=== PATIENT | female | born 1980 | race Caucasian/White ===

== ENCOUNTER 2017-08-15 08:37 | Inpatient (IN) | payer OTHER ==
[2017-08-11 17:47] VITALS: BMI 36.3
[2017-10-03] MEDS ORDERED: ONDANSETRON 4 MG/2 ML VIAL IVPUSH PRN ×2 (15:31→21:20)
[2017-10-03] MEDS ORDERED: LACTATED RINGERS SOLUTION 1,000 ML IV SCH ×2 (15:45→21:30)
[2017-10-03] MEDS ORDERED: HYDROmorphone *PCA* 6MG/30ML DISP.SYRIN PCA SCH ×2 (15:45→21:30)
[2017-10-03] MEDS ORDERED: ceFAZolin SODIUM 1 GM VIAL IVPB ONE ×3 (17:10→19:33)
[2017-10-03] MEDS ORDERED: VANCOMYCIN 1,000 MG VIAL (RESTRICTED TO ID ONLY) IVPB ONE (17:12)
[2017-10-03] MEDS ORDERED: GELATIN, ABSORBABLE 100 EACH SPONGE TP ONE ×2 (17:34→18:07)
[2017-10-03] MEDS ORDERED: THROMBIN (BOVINE) 5,000 UNIT VIAL TP ONE ×2 (17:34→18:07)
[2017-10-03] MEDS ORDERED: BACITRACIN 15 GM TUBE TOPICAL OINTMENT ONE (19:06)
[2017-10-03] MEDS ORDERED: PROPOFOL 20 ML ONE ×5 (19:25)
[2017-10-03] MEDS ORDERED: ceFAZolin SODIUM 1 GM VIAL ONE (19:32)
[2017-10-03] MEDS ORDERED: fentaNYL CITRATE 250 MCG/5 ML VIAL ONE ×2 (20:17→20:37)
[2017-10-03] MEDS ORDERED: GLYCOPYRROLATE 0.2 MG/1 ML VIAL ONE ×2 (21:09)
[2017-10-03] MEDS ORDERED: NEOSTIGMINE METHYLSULFATE 0.5 MG/ML - 10 ML MDV ONE (21:09)
[2017-10-03] MEDS ORDERED: PROMETHAZINE HCL 25 MG/1 ML VIAL IVPUSH PRN (21:20)
[2017-10-03] MEDS ORDERED: HYDROmorphone *PCA* 6MG/30ML DISP.SYRIN PCA ONE (21:33)
[2017-10-03] MEDS: ONDANSETRON 4 MG/2 ML VIAL IVPUSH PRN (21:45)
[2017-10-03] MEDS ORDERED: diazePAM 2 MG TABLET PO PRN (21:51)
[2017-10-03] MEDS ORDERED: ONDANSETRON 4 MG/2 ML VIAL ONE (21:54)
[2017-10-03] MEDS ORDERED: ACETAMINOPHEN INJECTION 100 ML IVPB ONE (21:56)
--- NOTE | 2017-10-03 21:57 | CONSULT ---
Consult Consult Specialty:: internal medicine Referred by:: dr blanchard Reason for Consultation:: post op medical management - History of Present Illness Chief Complaint: pt just had back surgery - Past Medical History ...LMP: 10/06/16 ...LMP Comment: GETS YEARLY- CONTROL PILL Musculoskeletal: Yes: Chronic low back pain - Alcohol/Substance Use Hx Alcohol Use: No - Smoking History Smoking history: Never smoked Home Medications - Allergies Allergies/Adverse Reactions: Allergies Allergy/AdvReac Type Severity Reaction Status Date / Time No Known Drug Allergies Allergy Verified 10/03/17 12:04 shellfish derived Allergy "FACE Verified 10/03/17 12:04 SWOLLEN,THROAT CLOSES" - Home Medications Home Medications: Ambulatory Orders Amitriptyline HCl 150 mg PO HS 08/11/17 Desogestrel-Ethinyl Estradiol [Apri] 1 each PO DAILY 08/11/17 Fluticasone Prop 0.05% Nasal [Flonase -] 1 - 2 spray NS DAILY 08/11/17 Hydrocodone/Acetaminophen [Hydrocodone-Acetamin 5-300 mg] 1 each PO PRN PRN 11/23 Ranitidine HCl 150 mg PO BID 08/11/17 Zolpidem Tartrate [Ambien] 10 mg PO HS 08/11/17 Physical Exam Vital Signs: Vital Signs Temperature 98.1 F 10/03/17 12:26 Pulse Rate 100 H 10/03/17 12:26 Respiratory Rate 18 10/03/17 12:26 Blood Pressure 130/81 10/03/17 12:26 O2 Sat by Pulse Oximetry (%) 100 10/03/17 12:27 Constitutional: Yes: Calm HENT: Yes: Atraumatic Neck: Yes: Supple Cardiovascular: Yes: Regular Rate and Rhythm, Tachycardia Respiratory: Yes: CTA Bilaterally Gastrointestinal: Yes: Normal Bowel Sounds Extremities: Yes: WNL Edema: No Neurological: Yes: Alert, Oriented Problem List - Problems (1) Chronic back pain Code(s): M54.9 - DORSALGIA, UNSPECIFIED; G89.29 - OTHER CHRONIC PAIN Assessment/Plan 37 y o female s/p back surgery asked by surgeon for medical consult 1.prn pain meds 2.clear liquid diet in am 3.fu labs 4.neuro consult
[2017-10-03] MEDS ORDERED: ACETAMINOPHEN 325 MG TABLET (FP) PO SCH (22:00)
[2017-10-03] MEDS: ACETAMINOPHEN 1000 MG/100 ML VIAL (NON FORMULARY) IVPB ONE (22:00)
[2017-10-03] MEDS ORDERED: MUPIROCIN 2% TOPICAL OINTMENT FOR DECOLONIZATION NS SCH (22:00)
[2017-10-03] MEDS ORDERED: PATIENT'S OWN MEDICATION (NON-FORMULARY) (Zolpidem Tartrate [Ambien] 10 MG) PO SCH (22:00)
[2017-10-03] MEDS ORDERED: CHLORHEXIDINE GLUCONATE 4% CLEANSER FOR DECOLONIZATION TP SCH (22:00)
[2017-10-03] MEDS ORDERED: AMITRIPTYLINE HCL 150 MG PO SCH (22:00)
--- NOTE | 2017-10-03 22:06 | PN ---
Teaching Attending Note Name of Resident: Ellis Barnett ATTENDING PHYSICIAN STATEMENT I saw and evaluated the patient. I reviewed the resident's note and discussed the case with the resident. I agree with the resident's findings and plan as documented. SUBJECTIVE: 37 F with Pmhx of anxiety and depression who is POD #0 of L4-S1 fusion and posterior decompression. States she has back pain, currently post surgery, but it is getting controlled. Denies any fevers or chills. No chest pain or pressure. No N, V,D. No shortness of breath OBJECTIVE: Physical: VS: Vital Signs Period Temp Pulse Resp BP Sys/García Pulse Ox Last 24 Hr 98.1 F 100 18 130/81 100 GEN: NAD, Resting in bed, AA0X3 HEENT: NCAT, PERRL, throat without erythema or exudates CARD: RRR S1, S2 RESP: CTAB ABD: BSx4, NTD to palpation EXT: -C/C/E EKG-NSR Home Medications Medication Instructions Recorded Amitriptyline HCl 150 mg PO HS 08/11/17 Desogestrel-Ethinyl Estradiol 1 each PO DAILY 08/11/17 [Apri] Fluticasone Prop 0.05% Nasal 1 - 2 spray NS DAILY 08/11/17 [Flonase -] Hydrocodone/Acetaminophen 1 each PO PRN PRN 08/11/17 [Hydrocodone-Acetamin 5-300 mg] Ranitidine HCl 150 mg PO BID 08/11/17 Zolpidem Tartrate [Ambien] 10 mg PO HS 08/11/17 ASSESSMENT AND PLAN: 37 F with Pmhx fo Anxiety and Depression who is POD #0 of L4-S1 fusion and posterior decompression 1.) L4-S1 Fusion/Posterior Decompression - POD #0 - Check CBC, CMP - IC - Pain control - NPO except meds - IVF 2.) Depression - Amytryptiline 3.) GERD - C/W Rantidine 4.) Dvt ppx - SCDs - As per sx Accepted to ICU CC Time: 30 Minutes
[2017-10-03] MEDS ORDERED: ZOLPIDEM TARTRATE 5 MG TABLET PO PRN (22:08)
[2017-10-03 22:13] LABS: HEMOGLOBIN 11.5 GM/dL (10.7-15.3); MCH 27.1 pg (25.7-33.7)
--- NOTE | 2017-10-03 22:13 | OP ---
Operative Note - Note: Operative Date: 10/03/17 Pre-Operative Diagnosis: radiculopathy, spianl instabiltiy Operation: posterior lamienctomy/decompression of L4-S1 with interbody fusion Surgeon: Damaso Cool Highway Commissioner: Abeba Rosas Anesthesiologist/LIP AND GATE BUILDER: Maico Bonds Anesthesia: General Specimens Removed: disc L4-L5 and L5-S1 Estimated Blood Loss (mls): 750 Drains, Volume Out (mls): 400 (sagastume) Blood Volume Replaced (mls): 400 (cell saver) Fluid Volume Replaced (mls): 4,300 Operative Report Dictated: Yes
[2017-10-03 22:16] LABS: HEMATOCRIT 35.4 % (32.4-45.2); MCHC 32.4 g/dl (32.0-36.0); MEAN CELL VOLUME 83.6 fl (80-96); MEAN PLT VOLUME 8.5 fl (7.5-11.1); PLATELET COUNT 210 K/MM3 (134-434); RBC 4.23 M/mm3 (3.60-5.2); RDW 13.4 % (11.6-15.6); WHITE BLOOD COUNT 14.6 K/mm3 (4.0-10.0)
[2017-10-03 22:25] LABS: ANION GAP 9 (8-16); BLOOD UREA NITROGEN 8 mg/dL (7-18); CALCIUM 7.6 mg/dL (8.5-10.1); CHLORIDE 106 mmol/L (98-107); CO2 22 mmol/L (21-32); CREATININE 0.8 mg/dL (0.55-1.02); GLUCOSE,RANDOM 157 mg/dL (74-106); POTASSIUM 4.6 mmol/L (3.5-5.1); SODIUM 137 mmol/L (136-145)
[2017-10-03 22:49] LABS: PLATELET ESTIMATE ADEQUATE
--- NOTE | 2017-10-03 23:04 | CONSULT ---
Consult Consult Specialty:: Pulm/CCM Reason for Consultation:: Spinal instability s/p L4-S1 spinal fusion - History of Present Illness Chief Complaint: Lower back pain History of Present Illness: 28yow with PMHx of depression, anxiety also radiculopathy and spinal instability who is now s/p L4-S1 spinal fusion. In the OR EBL 750cc, with 400cc returned via cellsaver, IVF 4,300cc and UOP 400cc. In the ICU she is rec'd A+O x3 and DIAZ. VS HR 91, BP 123/71, O2 sat 98% on 2L NC O2. Mid back dressing c/d/i and hemovac with small amt sero-sang fluid. She has no c/o pain, numbness or tingling in her extremities at this time. - History Source History Provided By: Patient, Medical Record Limitations to Obtaining History: No Limitations - Past Medical History ...LMP: 10/06/16 ...LMP Comment: GETS YEARLY- CONTROL PILL Psych: Yes: Anxiety, Depression Musculoskeletal: Yes: Chronic low back pain, Other (numbness and tingling in all extremities) - Alcohol/Substance Use Hx Alcohol Use: No - Smoking History Smoking history: Never smoked Home Medications - Allergies Allergies/Adverse Reactions: Allergies Allergy/AdvReac Type Severity Reaction Status Date / Time No Known Drug Allergies Allergy Verified 10/03/17 12:04 shellfish derived Allergy "FACE Verified 10/03/17 12:04 SWOLLEN,THROAT CLOSES" - Home Medications Home Medications: Ambulatory Orders Amitriptyline HCl 150 mg PO HS 08/11/17 Desogestrel-Ethinyl Estradiol [Apri] 1 each PO DAILY 08/11/17 Fluticasone Prop 0.05% Nasal [Flonase -] 1 - 2 spray NS DAILY 08/11/17 Hydrocodone/Acetaminophen [Hydrocodone-Acetamin 5-300 mg] 1 each PO PRN PRN 11/23 Ranitidine HCl 150 mg PO BID 08/11/17 Zolpidem Tartrate [Ambien] 10 mg PO HS 08/11/17 Family Disease History - Family Disease History Family History: Unremarkable Review of Systems - Review of Systems Constitutional: reports: No Symptoms Eyes: reports: No Symptoms HENT: reports: No Symptoms Neck: reports: No Symptoms Cardiovascular: reports: No Symptoms Respiratory: reports: No Symptoms Gastrointestinal: reports: No Symptoms Genitourinary: reports: No Symptoms Musculoskeletal: reports: Back Pain Neurological: reports: Numbness, Parasthesia (in extremities) Endocrine: reports: No Symptoms Hematology/Lymphatic: reports: No Symptoms Physical Exam Vital Signs: Vital Signs Temperature 98 F 10/03/17 21:18 Pulse Rate 96 H 10/03/17 22:30 Respiratory Rate 16 10/03/17 22:30 Blood Pressure 126/70 10/03/17 22:30 O2 Sat by Pulse Oximetry (%) 99 10/03/17 22:30 Constitutional: Yes: Well Nourished, No Distress, Calm, Obese Eyes: Yes: WNL HENT: Yes: WNL Neck: Yes: Supple Cardiovascular: Yes: Regular Rate and Rhythm Respiratory: Yes: Regular, CTA Bilaterally Gastrointestinal: Yes: Normal Bowel Sounds, Soft, Abdomen, Obese Renal/: Yes: Romero Present Extremities: Yes: WNL Edema: No Peripheral Pulses WNL: Yes Integumentary: Yes: WNL Wound/Incision: Yes: Clean/Dry, Dressing Dry and Intact Neurological: Yes: WNL, Alert, Oriented ...Motor Strength: WNL Psychiatric: Yes: Alert, Oriented Labs: CBC, BMP 10/03/17 21:45 10/03/17 21:45 CBC,CMP WBC 14.6 K/mm3 (4.0-10.0) H 10/03/17 21:45 RBC 4.23 M/mm3 (3.60-5.2) 10/03/17 21:45 Hgb 11.5 GM/dL (10.7-15.3) 10/03/17 21:45 Hct 35.4 % (32.4-45.2) 10/03/17 21:45 MCV 83.6 fl (80-96) 10/03/17 21:45 MCH 27.1 pg (25.7-33.7) 10/03/17 21:45 MCHC 32.4 g/dl (32.0-36.0) 10/03/17 21:45 RDW 13.4 % (11.6-15.6) 10/03/17 21:45 Plt Count 210 K/MM3 (134-434) 10/03/17 21:45 MPV 8.5 fl (7.5-11.1) 10/03/17 21:45 Total Counted 100 10/03/17 21:45 Neutrophils % No Result Required. 10/03/17 21:45 Neutrophils % (Manual) 84.0 % (42.8-82.8) H 10/03/17 21:45 Band Neutrophils % 5.0 % 10/03/17 21:45 Lymphocytes % No Result Required. 10/03/17 21:45 Lymphocytes % (Manual) 8.0 % (8-40) 10/03/17 21:45 Monocytes % (Manual) 1 % (3.8-10.2) L 10/03/17 21:45 Myelocytes % (Man) 1 % (0-2) 10/03/17 21:45 Differential Comment Man diff performed 10/03/17 21:45 Platelet Estimate Adequate 10/03/17 21:45 Platelet Comment 10/03/17 21:45 Sodium 137 mmol/L (136-145) 10/03/17 21:45 Potassium 4.6 mmol/L (3.5-5.1) 10/03/17 21:45 Chloride 106 mmol/L (98-107) 10/03/17 21:45 Carbon Dioxide 22 mmol/L (21-32) 10/03/17 21:45 Anion Gap 9 (8-16) 10/03/17 21:45 BUN 8 mg/dL (7-18) 10/03/17 21:45 Creatinine 0.8 mg/dL (0.55-1.02) 10/03/17 21:45 Random Glucose 157 mg/dL (74-106) H 10/03/17 21:45 Calcium 7.6 mg/dL (8.5-10.1) L 10/03/17 21:45 Serum , Qual Negative 10/03/17 10:53 Current Medications Acetaminophen (Tylenol -) 650 mg PO Q6H [facility] Stop: 10/06/17 00:01 Amitriptyline HCl (Elavil -) 150 mg PO HS [facility] Chlorhexidine Gluconate (Hibiclens For Decolonization -) 1 applic TP HS [facility] Diazepam (Valium -) 2 mg PO Q8H PRN PRN Reason: ANXIETY Docusate Sodium (Colace -) 100 mg PO BID [facility] Fluticasone Propionate (Flonase -) 2 spray NS DAILY [facility] Hydromorphone HCl (Dilaudid Event Marketing Assistant -) 6 mg TICKET PRINTER TICKET PRINTER [facility] PRN Reason: Protocol Stop: 10/10/17 21:21 Vancomycin HCl 1,000 mg/ (Dextrose) 250 mls @ 250 mls/hr IVPB ONCE ONE PRN Reason: Protocol Stop: 10/04/17 05:59 Cefazolin Sodium (Ancef 1 Gm Premixed Ivpb -) 1 gm in 50 mls @ 100 mls/hr IVPB Q8H [facility] Stop: 10/04/17 11:59 Lactated Ringer's (Lactated Ringers Solution) 1,000 ml in 1,000 mls @ 125 mls/ hr IV ASDIR [facility] Ketorolac Tromethamine (Toradol Injection -) 30 mg IVPUSH Q8H-IV PRN PRN Reason: PAIN LEVEL 1-5 Stop: 10/08/17 01:59 Mupirocin (Bactroban Ointment (For Decolonization) -) 1 applic NS BID [facility] Stop: 10/08/17 21:59 Non-Formulary Medication (Desogestrel-Ethinyl Estradiol [Apri 28 Day Tablet]) 1 each PO DAILY [facility] Ondansetron HCl (Zofran Injection) 4 mg IVPUSH Q6H PRN PRN Reason: NAUSEA Last Admin: 10/03/17 21:45 Dose: 4 mg Ranitidine HCl (Zantac -) 150 mg PO BID [facility] Zolpidem Tartrate (Ambien -) 10 mg PO HS PRN PRN Reason: INSOMNIA Vital Signs Period Temp Pulse Resp BP Sys/García Pulse Ox Last 24 Hr 98 F-98.2 F 87-103 16-18 115-130/60-81 98-100 Problem List - Problems (1) Herniated intervertebral disc Code(s): LCI3738 - (2) Anxiety Code(s): F41.9 - ANXIETY DISORDER, UNSPECIFIED (3) Depression Code(s): F32.9 - MAJOR DEPRESSIVE DISORDER, SINGLE EPISODE, UNSPECIFIED Assessment/Plan 37yow with PMHx of depression, anxiety also lumbar radiculopathy and spinal instability who is now s/p L4-S1 spinal fusion and transferred to ICU for post- op management. Plan: -O2 support as needed for O2sat 92% -Monitor back dressing for drainage -Monitor hemovac output -Continue Kefzol and vanco for empiric antibiotic coverage -Monitor CBC -Neurochecks q2 -TICKET PRINTER dilaudid for pain management -Continue anxiolytics and antidepressants. -Advance diet as tolerated -SCDs and GI prophylaxis Izabel Monterroso,BRET CC time 35mins
--- NOTE | 2017-10-03 23:18 | HP ---
CHIEF COMPLAINT: back pain HISTORY OF PRESENT ILLNESS: 37 y/o F w/PMH of anxiety, depression, disc herniation comes in for posterior laminectomy/decompression of L4-S1 w/interbody fusion. 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 Pt had multiple epidurals with no pain relief. Pt reports pain in her back since incident and pain that was worsened with movement of legs. She also reported numbness of b/l legs. Pain radiated to back from legs with movement of legs. She currently has back pain s/p surgery due to surgery but otherwise has no complaints at this time. She denies N/V/F/C, CP, SOB, abd pain. Recent Travel: denies PAST MEDICAL HISTORY:anxiety, depression, disc herniation PAST SURGICAL HISTORY: posterior laminectomy/decompression of L4-S1 w/interbody fusion (09/25); x1 Social History: Smoking: denies Alcohol: denies Drugs: denies Family History: n-c Allergies No Known Drug Allergies Allergy (Verified 10/03/17 12:04) shellfish derived Allergy (Verified 10/03/17 12:04) "FACE SWOLLEN,THROAT CLOSES" HOME MEDICATIONS: Home Medications Medication Instructions Recorded Amitriptyline HCl 150 mg PO HS 08/11/17 Desogestrel-Ethinyl Estradiol 1 each PO DAILY 08/11/17 [Apri] Fluticasone Prop 0.05% Nasal 1 - 2 spray NS DAILY 08/11/17 [Flonase -] Hydrocodone/Acetaminophen 1 each PO PRN PRN 08/11/17 [Hydrocodone-Acetamin 5-300 mg] Ranitidine HCl 150 mg PO BID 08/11/17 Zolpidem Tartrate [Ambien] 10 mg PO HS 08/11/17 REVIEW OF SYSTEMS CONSTITUTIONAL: Absent: fever, chills CARDIOVASCULAR: Absent: chest pain RESPIRATORY: Absent: shortness of breath GASTROINTESTINAL: Absent: abdominal pain, nausea MUSCULOSKELETAL: +back pain PHYSICAL EXAMINATION Vital Signs - 24 hr 10/03/17 10/03/17 10/03/17 12:26 12:27 21:18 Temperature 98.1 F 98 F Pulse Rate 100 H 103 H Respiratory 18 16 Rate Blood Pressure 130/81 115/61 O2 Sat by Pulse 100 100 Oximetry (%) 10/03/17 10/03/17 10/03/17 21:30 21:45 22:00 Temperature Pulse Rate 103 H 91 H 91 H Respiratory 18 16 16 Rate Blood Pressure 120/70 124/71 130/60 O2 Sat by Pulse 98 100 100 Oximetry (%) 10/03/17 10/03/17 22:15 22:30 Temperature Pulse Rate 87 96 H Respiratory 18 16 Rate Blood Pressure 126/70 126/70 O2 Sat by Pulse 100 99 Oximetry (%) GENERAL: Awake, alert, and fully oriented, in no acute distress. HEAD: Normal with no signs of trauma. EYES: Pupils equal, round and reactive to light, extraocular movements intact, sclera anicteric, conjunctiva clear EARS, NOSE, THROAT: Ears normal, nares patent, oropharynx clear without exudates. Moist mucous membranes. LUNGS: Auscultated anteriorly. Breath sounds equal, clear to auscultation bilaterally. HEART: Regular rate and rhythm, normal S1 and S2 without murmur, rub or gallop. ABDOMEN: Soft, obese, nontender, not distended, normoactive bowel sounds MUSCULOSKELETAL: 4/5 b/l LE and b/l UE strength. LOWER EXTREMITIES: 2+ pulses, warm, well-perfused. No peripheral edema. NEUROLOGICAL: Normal speech. Sensation to light touch equal and intact on b/l face, b/l UE, b/l LE. PSYCHIATRIC: Cooperative. Good eye contact. Appropriate mood and affect. SKIN: Warm, dry Laboratory Results - last 24 hr 10/03/17 10/03/17 10/03/17 10:53 10:53 12:00 WBC RBC Hgb Hct MCV MCH MCHC RDW Plt Count MPV Total Counted Neutrophils % Neutrophils % (Manual) Band Neutrophils % Lymphocytes % Lymphocytes % (Manual) Monocytes % (Manual) Myelocytes % (Man) Differential Comment Platelet Estimate Platelet Comment Sodium Potassium Chloride Carbon Dioxide Anion Gap BUN Creatinine Random Glucose Calcium Serum , Qual Negative Blood Type O POSITIVE O POSITIVE Antibody Screen Negative 10/03/17 10/03/17 21:45 21:45 WBC 14.6 H RBC 4.23 Hgb 11.5 Hct 35.4 MCV 83.6 MCH 27.1 MCHC 32.4 RDW 13.4 Plt Count 210 MPV 8.5 Total Counted 100 Neutrophils % No Result Required. Neutrophils % (Manual) 84.0 H Band Neutrophils % 5.0 Lymphocytes % No Result Required. Lymphocytes % (Manual) 8.0 Monocytes % (Manual) 1 L Myelocytes % (Man) 1 Differential Comment Man diff performed Platelet Estimate Adequate Platelet Comment Sodium 137 Potassium 4.6 Chloride 106 Carbon Dioxide 22 Anion Gap 9 BUN 8 Creatinine 0.8 Random Glucose 157 H Calcium 7.6 L Serum , Qual Blood Type Antibody Screen Active Medications Acetaminophen (Tylenol -) 650 mg PO Q6H [facility] Stop: 10/06/17 00:01 Amitriptyline HCl (Elavil -) 150 mg PO HS [facility] Chlorhexidine Gluconate (Hibiclens For Decolonization -) 1 applic TP HS [facility] Diazepam (Valium -) 2 mg PO Q8H PRN PRN Reason: ANXIETY Docusate Sodium (Colace -) 100 mg PO BID [facility] Fluticasone Propionate (Flonase -) 2 spray NS DAILY [facility] Hydromorphone HCl (Dilaudid Oil Well Pumper -) 6 mg CONTRACT MANAGER CONTRACT MANAGER [facility]I PRN Reason: Protocol Stop: 10/10/17 21:21 Vancomycin HCl 1,000 mg/ (Dextrose) 250 mls @ 250 mls/hr IVPB ONCE ONE PRN Reason: Protocol Stop: 10/04/17 05:59 Cefazolin Sodium (Ancef 1 Gm Premixed Ivpb -) 1 gm in 50 mls @ 100 mls/hr IVPB Q8H [facility] Stop: 10/04/17 11:59 Lactated Ringer's (Lactated Ringers Solution) 1,000 ml in 1,000 mls @ 125 mls/ hr IV ASDIR [facility] Ketorolac Tromethamine (Toradol Injection -) 30 mg IVPUSH Q8H-IV PRN PRN Reason: PAIN LEVEL 1-5 Stop: 10/08/17 01:59 Mupirocin (Bactroban Ointment (For Decolonization) -) 1 applic NS BID [facility] Stop: 10/08/17 21:59 Non-Formulary Medication (Desogestrel-Ethinyl Estradiol [Apri 28 Day Tablet]) 1 each PO DAILY [facility] Ondansetron HCl (Zofran Injection) 4 mg IVPUSH Q6H PRN PRN Reason: NAUSEA Last Admin: 10/03/17 21:45 Dose: 4 mg Ranitidine HCl (Zantac -) 150 mg PO BID [facility] Zolpidem Tartrate (Ambien -) 10 mg PO HS PRN PRN Reason: INSOMNIA ASSESSMENT/PLAN: 37 y/o F w/PMH of anxiety, depression, disc herniation comes in for posterior laminectomy/decompression of L4-S1 w/interbody fusion. -Disc herniation -s/p posterior laminectomy/decompression of L4-S1 w/interbody fusion -POD #0 -pain control - dilaudid CONTRACT MANAGER, ketrolac IV 30 mg pain 1-5 -nausea control with zofran 4mg IV q6h PRN -LR @ 125 ml/hr -c/w cefazolin and vanco as per surgery recs -NPO except for meds -Depression: -c/w amitriptyline -Insomnia: -c/w ambien 10 mg po qhs prn -Anxiety: -c/w diazepam 2mg po q8h PRN -GERD: -c/w ranitidine 150 mg po bid -DVT ppx: -SCDs -FEN: -LR @ 125 ml/hr -monitor electrolytes -NPO -Dispo: Monitor in ICU Visit type - Emergency Visit Emergency Visit: No - New Patient This patient is new to me today: Yes Date on this admission: 10/03/17 - Critical Care Critical Care patient: Yes Total Critical Care Time (in minutes): 35 Critical Care Statement: The care of this patient involved high complexity decision making to prevent further life threatening deterioration of the patient 's condition and/or to evaluate & treat vital organ system(s) failure or risk of failure. Hospitalist Screening - Colonoscopy Questionnaire Colonoscopy Questionnaire: Colonoscopy Questionnaire - Patient: 50 - 75 years old and never had a screening colonoscopy: No History of colon or rectal polyps, or CA: Unknown History of IBD, Crohn's disease or UC: Unknown History of abdominal radiation therapy as a child: Unknown - Relative: 1 with colon or rectal CA, or polyps at age 60 or younger: Unknown Colon or rectal CA diagnosed at age 45 or younger: Unknown Multiple relatives with colon or rectal CA: Unknown - Outcome: Screening Result: Negative Screen
[2017-10-03] MEDS: KETOROLAC TROMETHAMINE 30 MG/1 ML VIAL IVPUSH PRN (23:52)
[2017-10-03] MEDS: MUPIROCIN 2% TOPICAL OINTMENT FOR DECOLONIZATION NS SCH (23:52)
[2017-10-03] MEDS: CHLORHEXIDINE GLUCONATE 4% CLEANSER FOR DECOLONIZATION TP SCH (23:53)
[2017-10-03] MEDS: RANITIDINE HCL 150 MG TABLET (FP) PO SCH (23:54)
[2017-10-04] MEDS: CEFAZOLIN 1 GM/D5W 1 GM/50 ML BAG IVPB SCH ×2 (03:30→12:02)
[2017-10-04] MEDS ORDERED: VANCOMYCIN 1,000 MG in DEXTROSE 5%-WATER - 250 ML IVPB ONE (05:00)
[2017-10-04] MEDS: LACTATED RINGERS SOLUTION 1,000 ML/1,000 ML INFUS.BAG IV SCH ×2 (05:14→22:50)
[2017-10-04] MEDS ORDERED: ACETAMINOPHEN 325 MG TABLET (FP) PO SCH (06:00)
[2017-10-04 06:18] LABS: HEMATOCRIT 32.7 % (32.4-45.2); HEMOGLOBIN 10.8 GM/dL (10.7-15.3); LYMPH % 11.2 % (8-40); MCH 27.5 pg (25.7-33.7); MCHC 33.1 g/dl (32.0-36.0); MEAN PLT VOLUME 8.9 fl (7.5-11.1); MONO % 3.3 % (3.8-10.2); NEUT % 85.5 % (42.8-82.8); PLATELET COUNT 211 K/MM3 (134-434); RBC 3.94 M/mm3 (3.60-5.2); RDW 13.6 % (11.6-15.6); WHITE BLOOD COUNT 10.7 K/mm3 (4.0-10.0)
[2017-10-04 06:44] LABS: ANION GAP 12 (8-16); BLOOD UREA NITROGEN 7 mg/dL (7-18); CALCIUM 7.9 mg/dL (8.5-10.1); CHLORIDE 103 mmol/L (98-107); CO2 22 mmol/L (21-32); GLUCOSE,RANDOM 144 mg/dL (74-106); POTASSIUM 4.4 mmol/L (3.5-5.1); SODIUM 137 mmol/L (136-145)
[2017-10-04] MEDS: HYDROmorphone *PCA* 6MG/30ML DISP.SYRIN PCA SCH ×2 (06:44→06:46)
[2017-10-04 06:47] LABS: CREATININE 0.6 mg/dL (0.55-1.02)
--- NOTE | 2017-10-04 07:09 | PN ---
Progress Note, Physician History of Present Illness: 37 y/o F w/PMH of DVT (per patient report in 11/2015, right calf, dx by US, and never placed on anticoagulation), anxiety, depression, disc herniation from prior fall, who is post-op from posterior laminectomy/decompression of L4-S1 with interbody fusion by Dr. Cool. She currently has back pain s/p surgery due to surgery but otherwise has no complaints at this time. She denies N/V/F/C, CP , SOB, abd pain. She is on OCP for h/o heavy vaginal bleeding and anemia. She has never been a cigarette smoker. 24 HOUR EVENTS She was transferred to ICU after uncomplicated posterior lamienctomy/ decompression of L4-S1 with interbody fusion for spinal instability/ radiculopathy, general anesthesia, EBL 750, received perioperative Ancef/ Vancomycin. SUBJECTIVE C/O back pain, itching, left hand tingling. Has had LRE>LLE swelling for the past 2-3 months, no leg pain. She does not h/o DVT in 11/2015 after she was immobilized d/t back injury, and this was in her right calf. She was seen at [facility] and was on a medication for this for only 2 days, followed up with her PCP, they were not concerned, per her report. She has not had a BM or passed any gas yet. 24 HOUR INTAKE & OUTPUT Intake: 4800cc Output: 1305cc Net: +3695cc BM: None reported LINES/TUBES/DRAINS Romero placed 10/03 Wound drain placed 10/03 - Current Medication List Current Medications: Active Medications Acetaminophen (Tylenol -) 650 mg PO Q6H [facility] Stop: 10/06/17 00:01 Last Admin: 10/04/17 05:01 Dose: 650 mg Amitriptyline HCl (Elavil -) 150 mg PO HS [facility] Chlorhexidine Gluconate (Hibiclens For Decolonization -) 1 applic TP HS K[facility]I Last Admin: 10/03/17 23:53 Dose: 1 applic Diazepam (Valium -) 2 mg PO Q8H PRN PRN Reason: ANXIETY Last Admin: 10/03/17 23:58 Dose: 2 mg Docusate Sodium (Colace -) 100 mg PO BID [facility] Fluticasone Propionate (Flonase -) 2 spray NS DAILY [facility] Hydromorphone HCl (Dilaudid End Frazer -) 6 mg DRILLING RIG OPERATOR DRILLING RIG OPERATOR KODI PRN Reason: Protocol Stop: 10/10/17 21:21 Last Admin: 10/04/17 06:46 Dose: 6 mg Cefazolin Sodium (Ancef 1 Gm Premixed Ivpb -) 1 gm in 50 mls @ 100 mls/hr IVPB Q8H [facility] Stop: 10/04/17 11:59 Last Admin: 10/04/17 03:30 Dose: 100 mls/hr Lactated Ringer's (Lactated Ringers Solution) 1,000 ml in 1,000 mls @ 125 mls/ hr IV ASDIR [facility] Last Admin: 10/04/17 05:14 Dose: 125 mls/hr Ketorolac Tromethamine (Toradol Injection -) 30 mg IVPUSH Q8H-IV PRN PRN Reason: PAIN LEVEL 1-5 Stop: 10/08/17 01:59 Last Admin: 10/03/17 23:52 Dose: 30 mg Mupirocin (Bactroban Ointment (For Decolonization) -) 1 applic NS BID [facility] Stop: 10/08/17 21:59 Last Admin: 10/03/17 23:52 Dose: 1 applic Non-Formulary Medication (Desogestrel-Ethinyl Estradiol [Apri 28 Day Tablet]) 1 each PO DAILY [facility] Ondansetron HCl (Zofran Injection) 4 mg IVPUSH Q6H PRN PRN Reason: NAUSEA Last Admin: 10/03/17 21:45 Dose: 4 mg Ranitidine HCl (Zantac -) 150 mg PO BID [facility] Last Admin: 10/03/17 23:54 Dose: 150 mg Zolpidem Tartrate (Ambien -) 10 mg PO HS PRN PRN Reason: INSOMNIA - Objective Vital Signs: Vital Signs Temperature 98.8 F 10/04/17 02:00 Pulse Rate 84 10/04/17 06:00 Respiratory Rate 18 10/04/17 06:00 Blood Pressure 136/71 10/04/17 06:00 O2 Sat by Pulse Oximetry (%) 100 10/04/17 01:02 Constitutional: Yes: Well Nourished, Calm, Obese, Other (a bit tearful and states d/t pain, very pleasant adult female) Eyes: Yes: WNL, Conjunctiva Clear, EOM Intact HENT: Yes: WNL, Atraumatic, Normocephalic Neck: Yes: WNL, Supple, Trachea Midline Cardiovascular: Yes: WNL, Regular Rate and Rhythm Respiratory: Yes: WNL, Regular, CTA Bilaterally, On Nasal O2 Gastrointestinal: Yes: WNL, Soft, Abdomen, Obese, Hypoactive Bowel Sounds Genitourinary: Yes: Romero Present Musculoskeletal: Yes: Back Pain Extremities: No: Cool, Cyanosis, Delayed Capillary Refill, Erythema Edema: Yes (non-pitting RLE>LLE) Edema: RUE: 1+, LLE: Trace Peripheral Pulses: Left Doralis Pedis: 2+, Right Dorsalis Pedis: 2+ Integumentary: Yes: WNL Wound/Incision: Yes: Dressing Dry and Intact Neurological: Yes: Alert, Oriented, Weakness (BLE mild decreased strength (4/5 bilaterally)), Other (numbness/tingling states to LUE) ...Motor Strength: LUE (5/5), LLE (4/5), RUE (5/5), RLE (4/5) Psychiatric: Yes: Alert, Oriented Labs: CBC, BMP 10/04/17 05:00 10/04/17 05:00 Assessment/Plan MUSCULOSKELETAL #S/P Spinal Surgery. Posterior laminectomy/decompression of L4-S1 with interbody fusion, OR day was 10/03/[address] Cool. EBL 750, received perioperative Ancef/Vancomycin. -Drs. Cool following -Pain management (Dilaudid DRILLING RIG OPERATOR, Toradol, Tylenol) -Continue Ancef/Vancomycin per surgery recs -Incentive spirometer -Advance activity per Drs. Cool ENDO #Type II Diabetes Mellitus -Continue inpatient insulin regimen -Finger stick and CMP/BMP monitoring -Likely hypoglycemic episode this AM -Probable dumping syndrome, orange juice prn HEME #High risk for DVT/PE. Patient [id number] female, on OCP, now immobilized s/p spinal surgery. Patient states no known personal or family h/o DVT/PE. Currently no calf pain, CP, or SOB. Chronic h/o RLE>LLE leg swelling, also stated h/o provoked RLE DVT after injury in 10/2015. -HSQ MANISH - will discuss with Drs. Cool -DC OCP -SCDs, TEDs -Monitor closely for sxs, serial BLE exams INTEGUMENTARY Pruritis, intermittent after opiate pain medication dosing. Most likely a mild reaction to these medications. -Benadryl 50 mg IVPUSH prn before opiate pain medication PSYCH #Depression, chronic. Patient on amitriptylene. -Increased risk for QTc prolongation, arrhythmia, BP dysregulation -Monitor for side effect sxs #Anxiety, chronic. Patient on diazepam. -Continue diazepam #Insomnia, chronic. Patient on zolpidem. -Continue zolpidem FEN -Monitor CMP, Mg, Phos, AND UOP -Clear liquids now, advance diet when directed by Dr. Cool -Adequate hydration -Zofran for nausea -LR @ 125 ml/hr PPX DVT: SCDs, TEDs GI: Ranitidine PT: Order placed DISPO Monitor in ICU
[2017-10-04 08:19] LABS: MAGNESIUM 1.7 mg/dL (1.8-2.4); PHOSPHOROUS 3.2 mg/dL (2.5-4.9)
[2017-10-04] MEDS: KETOROLAC TROMETHAMINE 30 MG/1 ML VIAL IVPUSH PRN ×2 (09:30→19:42)
[2017-10-04] MEDS: DOCUSATE SODIUM 100 MG CAPSULE (FP) PO SCH ×2 (09:31→21:36)
[2017-10-04] MEDS: RANITIDINE HCL 150 MG TABLET (FP) PO SCH ×2 (09:32→21:39)
[2017-10-04] MEDS: FLUTICASONE PROP 0.05% 16 GM NASAL SPRAY NS SCH (09:32)
--- NOTE | 2017-10-04 09:53 | PN ---
Progress Note (short form) - Note Progress Note: Pt with some itching last pm, she has a h/o of itching with Vicodin but has recently been taking norco as an outpt for aysha relief without itching. She hasn 't tried morphine in the past. Overall she denies any nausea, headache, CP/SOB. She is having pain this am. She has complaints of left fingers tingling. Vital Signs Period Temp Pulse Resp BP Sys/García Pulse Ox Last 24 Hr 98 F-98.8 F 84-103 12-18 104-140/60-86 98-100 Drain: 50ml serosangrenous GEN: A&0x3, NAD CV: RR, mild tachyardia Lungs: CTA b/l ABD: soft, non-distended, non-tender BACK: dressing C/D/I NEURO: 5/5 plantar/dorsi flexion/EHL b/l. Right straight leg 3/5 and left straight. Left/right arm motorcycle mechanic strength equal b/l with 5/5 flexion/extension. CBC, BMP 10/04/17 05:00 10/04/17 05:00 A/p: 37 yo female s/p posterior lamienctomy/decompression of L4-S1 with interbody fusion Advanced diet to clears oob to chair/PT Incentive spirometer discontinue sagastume catheter IV pain management with standing IV tylenol/toradol with valium and morphine. May pre-medicate with benadryl when receiving morphine to help with itching discontinue IV dilaudid. IV surgical antibiotics to discontinue today Dressing to remain intact, JANINE in place D/w Dr. Cool <Abeba Rosas - Last Filed: 10/04/17 15:06> - Note Progress Note: Agree with above text <Damaso Cool - Last Filed: 10/05/17 08:17>
[2017-10-04] MEDS ORDERED: DESOGESTREL ETHINYL ESTRADIOL PO SCH (10:00)
--- NOTE | 2017-10-04 10:18 | PN ---
Progress Note, Physician Chief Complaint: day #1 s/p L4-S1 PLIF - Current Medication List Current Medications: Active Medications Acetaminophen (Ofirmev Injection -) 1,000 mg IVPB Q6H [facility] Stop: 10/05/17 06:01 Amitriptyline HCl (Elavil -) 150 mg PO [facility] Chlorhexidine Gluconate (Hibiclens For Decolonization -) 1 applic TP HS [facility] Last Admin: 10/03/17 23:53 Dose: 1 applic Diazepam (Valium -) 5 mg PO Q8H PRN PRN Reason: MUSCLE SPASMS Docusate Sodium (Colace -) 100 mg PO BID [facility] Last Admin: 10/04/17 09:31 Dose: 100 mg Fluticasone Propionate (Flonase -) 2 spray NS DAILY [facility] Last Admin: 10/04/17 09:32 Dose: 2 sprays Cefazolin Sodium (Ancef 1 Gm Premixed Ivpb -) 1 gm in 50 mls @ 100 mls/hr IVPB Q8H [facility] Stop: 10/04/17 11:59 Last Admin: 10/04/17 03:30 Dose: 100 mls/hr Lactated Ringer's (Lactated Ringers Solution) 1,000 ml in 1,000 mls @ 125 mls/ hr IV ASDIR [facility] Last Admin: 10/04/17 05:14 Dose: 125 mls/hr Ketorolac Tromethamine (Toradol Injection -) 30 mg IVPUSH Q8H-IV PRN PRN Reason: PAIN LEVEL 1-5 Stop: 10/08/17 01:59 Last Admin: 10/04/17 09:30 Dose: 30 mg Morphine Sulfate (Morphine Sulfate) 2 mg IVPUSH Q4H PRN PRN Reason: PAIN LEVEL 7 - 10 Mupirocin (Bactroban Ointment (For Decolonization) -) 1 applic NS BID [facility] Stop: 10/08/17 21:59 Last Admin: 10/03/17 23:52 Dose: 1 applic Non-Formulary Medication (Desogestrel-Ethinyl Estradiol [Apri 28 Day Tablet]) 1 each PO DAILY [facility] Ondansetron HCl (Zofran Injection) 4 mg IVPUSH Q6H PRN PRN Reason: NAUSEA Last Admin: 10/03/17 21:45 Dose: 4 mg Ranitidine HCl (Zantac -) 150 mg PO BID [facility] Last Admin: 10/04/17 09:32 Dose: 150 mg Zolpidem Tartrate (Ambien -) 10 mg PO HS PRN PRN Reason: INSOMNIA - Objective Vital Signs: Vital Signs Temperature 98.3 F 10/04/17 10:00 Pulse Rate 97 H 10/04/17 10:00 Respiratory Rate 8 L 10/04/17 10:00 Blood Pressure 158/92 10/04/17 10:00 O2 Sat by Pulse Oximetry (%) 100 10/04/17 07:52 Labs: CBC, BMP 10/04/17 05:00 10/04/17 05:00 Assessment/Plan Doing well today- mild itching with ASSOCIATE DIRECTOR QA but tolerable. Pain under control. No anesthetic issues
[2017-10-04] MEDS: morphine SULFATE 4 MG/ML VIAL IVPUSH PRN ×4 (11:46→22:45)
[2017-10-04] MEDS: MUPIROCIN 2% TOPICAL OINTMENT FOR DECOLONIZATION NS SCH ×2 (11:46→21:35)
[2017-10-04] MEDS ORDERED: DEXTROSE 50%-WATER - 25 GM/50 ML VIAL IVPUSH ONE (11:47)
--- NOTE | 2017-10-04 11:48 | PN ---
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 Back pain 7/10, otherwise no chest pain, SOB, nausea, vomiting. No gas passed yet. Sagastume is in. OBJECTIVE: Vital Signs Period Temp Pulse Resp BP Sys/García Pulse Ox Last 24 Hr 98 F-98.8 F 84-103 8-18 104-158/60-92 98-100 GENERAL: A&Ox3, no acute distress EYES: PERRLA, EOMI LUNGS: CTA, no wheezing HEART: RRR no murmurs rubs or gallops ABDOMEN: obese, soft, nontender EXTREMITIES: 2+ pulses, warm, well-perfused, no edema. NEUROLOGICAL: CN II-XII intact, reflexes 2/6 bilaterally, motor strength 5/5 bilaterally, sensation intact PSYCH: Normal mood, normal affect. SKIN: Warm, dry, normal turgor, no rashes or lesions noted Laboratory Results - last 24 hr 10/03/17 10/03/17 10/03/17 10:53 10:53 12:00 WBC RBC Hgb Hct MCV MCH MCHC RDW Plt Count MPV Total Counted Neutrophils % Neutrophils % (Manual) Band Neutrophils % Lymphocytes % Lymphocytes % (Manual) Monocytes % Monocytes % (Manual) Eosinophils % Basophils % Myelocytes % (Man) Differential Comment Platelet Estimate Platelet Comment Sodium Potassium Chloride Carbon Dioxide Anion Gap BUN Creatinine Random Glucose Calcium Phosphorus Magnesium Serum , Qual Negative Blood Type O POSITIVE O POSITIVE Antibody Screen Negative 10/03/17 10/03/17 10/04/17 21:45 21:45 05:00 WBC 14.6 H 10.7 H RBC 4.23 3.94 Hgb 11.5 10.8 Hct 35.4 32.7 MCV 83.6 83.0 MCH 27.1 27.5 MCHC 32.4 33.1 RDW 13.4 13.6 Plt Count 210 211 MPV 8.5 8.9 Total Counted 100 Neutrophils % No Result Required. 85.5 H Neutrophils % (Manual) 84.0 H Band Neutrophils % 5.0 Lymphocytes % No Result Required. 11.2 Lymphocytes % (Manual) 8.0 Monocytes % 3.3 L Monocytes % (Manual) 1 L Eosinophils % 0.0 Basophils % 0.0 Myelocytes % (Man) 1 Differential Comment Man diff performed Platelet Estimate Adequate Platelet Comment Sodium 137 Potassium 4.6 Chloride 106 Carbon Dioxide 22 Anion Gap 9 BUN 8 Creatinine 0.8 Random Glucose 157 H Calcium 7.6 L Phosphorus Magnesium Serum , Qual Blood Type Antibody Screen 10/04/17 10/04/17 05:00 05:00 WBC RBC Hgb Hct MCV MCH MCHC RDW Plt Count MPV Total Counted Neutrophils % Neutrophils % (Manual) Band Neutrophils % Lymphocytes % Lymphocytes % (Manual) Monocytes % Monocytes % (Manual) Eosinophils % Basophils % Myelocytes % (Man) Differential Comment Platelet Estimate Platelet Comment Sodium 137 Potassium 4.4 Chloride 103 Carbon Dioxide 22 Anion Gap 12 BUN 7 Creatinine 0.6 Random Glucose 144 H Calcium 7.9 L Phosphorus 3.2 Cancelled Magnesium 1.7 L Cancelled Serum , Qual Blood Type Antibody Screen Active Medications Generic Name Dose Route Start Last Admin Trade Name Freq PRN Reason Stop Dose Admin Acetaminophen 1,000 mg 10/04/17 12:00 Ofirmev Injection - IVPB 10/05/17 06:01 Q6H KODI Amitriptyline HCl 150 mg 10/04/17 22:00 Elavil - PO HS K[facility]I Chlorhexidine Gluconate 1 applic 10/03/17 22:00 10/03/17 23:53 Hibiclens For Decolonization - TP 1 applic HS K[facility]I Administration Diazepam 5 mg 10/04/17 09:17 Valium - PO Q8H PRN MUSCLE SPASMS Docusate Sodium 100 mg 10/04/17 10:00 10/04/17 09:31 Colace - PO 100 mg BID [facility] Administration Fluticasone Propionate 2 spray 10/04/17 10:00 10/04/17 09:32 Flonase - NS 2 sprays DAILY [facility] Administration Cefazolin Sodium 1 gm in 50 mls @ 100 mls/hr 10/04/17 03:30 10/04/17 03:30 Ancef 1 Gm Premixed Ivpb - IVPB 10/04/17 11:59 100 mls/hr Q8H [facility] Administration Lactated Ringer's 1,000 ml in 1,000 mls @ 125 mls/hr 10/03/17 22:00 10/04/17 05:14 Lactated Ringers Solution IV 125 mls/hr ASDIR [facility] Administration Ketorolac Tromethamine 30 mg 10/03/17 21:50 02/27/18 09:30 Toradol Injection - IVPUSH 10/08/17 01:59 30 mg Q8H-IV PRN Administration PAIN LEVEL 1-5 Morphine Sulfate 2 mg 10/04/17 09:23 Morphine Sulfate IVPUSH Q4H PRN PAIN LEVEL 7 - 10 Mupirocin 1 applic 10/03/17 22:00 10/03/17 23:52 Bactroban Ointment (For Decolonization) - NS 10/08/17 21:59 1 applic BID [facility] Administration Non-Formulary Medication 1 each 10/04/17 10:00 Desogestrel-Ethinyl Estradiol [Apri 28 Day Tablet] PO DAILY [facility] Ondansetron HCl 4 mg 10/03/17 23:00 10/03/17 21:45 Zofran Injection IVPUSH 4 mg Q6H PRN Administration NAUSEA Ranitidine HCl 150 mg 10/03/17 22:00 10/04/17 09:32 Zantac - PO 150 mg BID [facility] Administration Zolpidem Tartrate 10 mg 10/03/17 22:08 Ambien - PO HS PRN INSOMNIA ASSESSMENT/PLAN: 37 year old female with a past medical history of anxiety, depression, disc herniation, chronic back pain is s/p L4-S1 laminectomy and decompression w/ fusion performed by Dr. Damaso Kathleen #Back Pain: POD1 L4-S1 laminectomy/decompression w/ fusion -D/C PATIENT REGISTRATION SUPERVISOR pump, add IV toradol, tylenol, and valium with breakthrough morphine -monitor urine output and bowel movements -may likely remove sagastume catheter today -zofran for nausea -LR @ 125 ml/hr fluid hydration -finishes antibiotics today -can advance diet to clears -continue amitriptyline for back pain #Insomnia: controlled -patient is on ambien 10, continue HS PRN #Anxiety: -continue diazepam Q8 as needed -GERD: -continue ranitidine 150 QD #Prophylaxis -SCDs, no heparin on this patient #FEN: -LR @ 125 ml/hr fluid hydration -replete lytes in Am -Clear liquid diet for now #Disposition: -continue to monitor in ICU Visit type - Emergency Visit Emergency Visit: No - New Patient This patient is new to me today: No - Critical Care Critical Care patient: Yes Total Critical Care Time (in minutes): 35 Critical Care Statement: The care of this patient involved high complexity decision making to prevent further life threatening deterioration of the patient 's condition and/or to evaluate & treat vital organ system(s) failure or risk of failure.
[2017-10-04] MEDS ORDERED: MAGNESIUM 2GM/50ML STERILE WATER IVPB IVPB ONE (12:01)
--- NOTE | 2017-10-04 12:19 | PN ---
Teaching Attending Note Name of Resident: Jojo Taiean ATTENDING PHYSICIAN STATEMENT I saw and evaluated the patient. I reviewed the resident's note and discussed the case with the resident. I agree with the resident's findings and plan as documented. SUBJECTIVE: Pt seen and examined in the ICU. Still with significant pain. Developed itching after narcotics. No fevers or chills. No shortness of breath or chest pain. Reports right leg swelling chronic since July. +left finger tingling. OBJECTIVE: Last Vital Signs Temp Pulse Resp BP Pulse Ox 98.3 F 97 H 8 L 158/92 100 10/04/17 10:00 10/04/17 10:00 10/04/17 10:10/04/17 10:00 10/04/17 07:52 Intake & Output 10/01/17 10/02/17 10/03/17 10/04/17 23:59 23:59 23:59 23:59 Intake Total 4800 1140 Output Total 1305 850 Balance 3495 290 Weight 124.738 kg 129.841 kg Gen: NAD at rest Heart: RRR Lung: decreased breath sounds at the bases Abd: soft, nontender Ext: no edema Drain with serosanguinous fluid CBC, BMP 10/04/17 05:00 10/04/17 05:00 Active Medications Acetaminophen (Ofirmev Injection -) 1,000 mg IVPB Q6H [facility] Stop: 10/05/17 06:01 Amitriptyline HCl (Elavil -) 150 mg PO HS [facility] Chlorhexidine Gluconate (Hibiclens For Decolonization -) 1 applic TP HS [facility] Last Admin: 10/03/17 23:53 Dose: 1 applic Diazepam (Valium -) 5 mg PO Q8H PRN PRN Reason: MUSCLE SPASMS Docusate Sodium (Colace -) 100 mg PO BID [facility] Last Admin: 10/04/17 09:31 Dose: 100 mg Fluticasone Propionate (Flonase -) 2 spray NS DAILY [facility] Last Admin: 10/04/17 09:32 Dose: 2 sprays Lactated Ringer's (Lactated Ringers Solution) 1,000 ml in 1,000 mls @ 125 mls/ hr IV ASDIR [facility] Last Admin: 10/04/17 05:14 Dose: 125 mls/hr Ketorolac Tromethamine (Toradol Injection -) 30 mg IVPUSH Q8H-IV PRN PRN Reason: PAIN LEVEL 1-5 Stop: 10/08/17 01:59 Last Admin: 10/04/17 09:30 Dose: 30 mg Morphine Sulfate (Morphine Sulfate) 2 mg IVPUSH Q4H PRN PRN Reason: PAIN LEVEL 7 - 10 Last Admin: 10/04/17 11:46 Dose: 2 mg Mupirocin (Bactroban Ointment (For Decolonization) -) 1 applic NS BID [facility] Stop: 10/08/17 21:59 Last Admin: 10/04/17 11:46 Dose: 1 applic Non-Formulary Medication (Desogestrel-Ethinyl Estradiol [Apri 28 Day Tablet]) 1 each PO DAILY [facility] Ondansetron HCl (Zofran Injection) 4 mg IVPUSH Q6H PRN PRN Reason: NAUSEA Last Admin: 10/03/17 21:45 Dose: 4 mg Ranitidine HCl (Zantac -) 150 mg PO BID [facility] Last Admin: 10/04/17 09:32 Dose: 150 mg Zolpidem Tartrate (Ambien -) 10 mg PO HS PRN PRN Reason: INSOMNIA ASSESSMENT AND PLAN: Lumbar Radiculopathy/Spinal Instability s/p S4-S1 Spinal Fusion Depression/Anxiety h/o ?Distal DVT - pain control - incentive spirometry - premedicate with benadryl prior to narcotics - hold OCP for now - continue home psych meds - monitor H/H - monitor drain output - mechanical DVT prophylaxis - activity/PO/disposition per surgery
[2017-10-04] MEDS: ACETAMINOPHEN 1000 MG/100 ML VIAL (NON FORMULARY) IVPB SCH ×2 (12:45→17:07)
--- NOTE | 2017-10-04 14:22 | PN ---
Teaching Attending Note Name of Resident: Maico Lewis ATTENDING PHYSICIAN STATEMENT I saw and evaluated the patient. I reviewed the resident's note and discussed the case with the resident. I agree with the resident's findings and plan as documented. SUBJECTIVE: no fever or chills, back pain is controlled . has no numbness , tingling or weakness in LE . 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 CV: RRR, no MRG Lungs: CTAB Ext: no edema , no erythema MS : could not assess lower back dressing . neuro of LE : LLE: hip flexion 3/5 ( limited by pain) , knee flexion and extension 5/5 , ankle plantar flexion and dorsiflexion 5/5 RLE : hip flexion 3/5 ( also, limited by pain) , knee flexion and extension 5/ 5 , ankle plantar flexion and dorsiflexion 5/5 sensatio to light touch Nl. reflexes 2+ knee jerk and biceps b/l ASSESSMENT AND PLAN: 37 y/o lady with h/o chronic back pain, depression , GERD and other medical problems who presented for Laminetomy/decompression/fusion of L4-S1 1- s/p Laminetomy/decompression/fusion of L4-S1 : POD day 1 dong well , no fever, lekocytosis and with stable VS itching to Narcotics over night - pain control : toradol, IV tylenol, IV morphine ( with benadryl) - cont home amitripyline - monitor JANINE drainage out put - clears for now , possible advancing to soft today - IVF . decrease dose tomorrow - case d/w Abeba dwyer 2- GERD: cont ranitidine 3- h/o depression : not on any treatment at this point No heparin products . SCDs
[2017-10-04] MEDS: diazePAM 5 MG TABLET PO PRN ×2 (14:50→22:48)
[2017-10-04] MEDS: ONDANSETRON 4 MG/2 ML VIAL IVPUSH PRN (17:00)
--- NOTE | 2017-10-04 19:18 | PN ---
Progress Note (short form) - Note Progress Note: POD#1 Doing well C/O incisional pain No leg pain Vitals Stable Neuro At baseline Wound dry Drain in situ PLAN Soft diet Pain Mx PT mobilize
[2017-10-04] MEDS ORDERED: PT OWN MED DRAWER 7, Y5N ONE (20:55)
[2017-10-04] MEDS: CHLORHEXIDINE GLUCONATE 4% CLEANSER FOR DECOLONIZATION TP SCH (22:49)
[2017-10-04] MEDS: AMITRIPTYLINE HCL 75 MG TABLET PO SCH (22:49)
[2017-10-04] MEDS: ACETAMINOPHEN 1000 MG/100 ML VIAL (NON FORMULARY) IVPB ONE (23:09)
[2017-10-05] MEDS: KETOROLAC TROMETHAMINE 30 MG/1 ML VIAL IVPUSH PRN ×3 (04:05→18:48)
[2017-10-05] MEDS: morphine SULFATE 4 MG/ML VIAL IVPUSH PRN (04:58)
[2017-10-05] MEDS: ACETAMINOPHEN 1000 MG/100 ML VIAL (NON FORMULARY) IVPB SCH ×2 (06:03)
[2017-10-05 06:30] LABS: BASO % 0.3 % (0-2.0); EOS % 0.4 % (0-4.5); HEMATOCRIT 29.1 % (32.4-45.2); HEMOGLOBIN 9.3 GM/dL (10.7-15.3); LYMPH % 31.7 % (8-40); MCH 27.2 pg (25.7-33.7); MCHC 32.1 g/dl (32.0-36.0); MEAN CELL VOLUME 84.6 fl (80-96); MEAN PLT VOLUME 8.9 fl (7.5-11.1); MONO % 5.3 % (3.8-10.2); NEUT % 62.3 % (42.8-82.8); PLATELET COUNT 175 K/MM3 (134-434); RBC 3.44 M/mm3 (3.60-5.2); RDW 13.6 % (11.6-15.6); WHITE BLOOD COUNT 11.2 K/mm3 (4.0-10.0)
[2017-10-05 07:03] LABS: ALBUMIN 2.5 g/dl (3.4-5.0); ANION GAP 7 (8-16); BILIRUBIN,TOTAL 0.5 mg/dL (0.2-1.0); BLOOD UREA NITROGEN 7 mg/dL (7-18); CHLORIDE 107 mmol/L (98-107); CO2 27 mmol/L (21-32); CREATININE 0.7 mg/dL (0.55-1.02); GLUCOSE,RANDOM 82 mg/dL (74-106); MAGNESIUM 2.2 mg/dL (1.8-2.4); PHOSPHOROUS 2.2 mg/dL (2.5-4.9); POTASSIUM 3.7 mmol/L (3.5-5.1); SGOT/AST 45 U/L (15-37); SGPT/ALT 21 U/L (12-78); SODIUM 141 mmol/L (136-145); TOT PROT 5.2 g/dl (6.4-8.2)
[2017-10-05 07:04] LABS: ALK PHOS 47 U/L (45-117)
[2017-10-05] MEDS ORDERED: NAPH,MB-DB/K PH,MBDB POWDER PACKET PO ONE (07:48)
[2017-10-05] MEDS ORDERED: HEPARIN NA (PORCINE) 5,000 UNITS/ML 1ML VIAL SQ SCH (08:00)
--- NOTE | 2017-10-05 08:42 | PN ---
<Maico Lewis - Last Filed: 10/05/17 11:02> Physical Exam: SUBJECTIVE: patient reports improved pain and no more pruritis. States that she was able to get up and move into a chair. Still complains of mild back pain. Denies chest pain, SOB, nausea, vomiting, diarrhea. Passing gas, no bowel movement yet. OBJECTIVE: Vital Signs Period Temp Pulse Resp BP Sys/García Pulse Ox Last 24 Hr 98.3 F-98.8 F 81-102 8-19 117-158/64-92 100-100 GENERAL: A&Ox3, no acute distress EYES: PERRLA, EOMI LUNGS: CTA, no wheezing HEART: RRR no murmurs rubs or gallops ABDOMEN: obese, soft, nontender EXTREMITIES: 2+ pulses, warm, well-perfused, no edema. NEUROLOGICAL: CN II-XII intact, reflexes 2/6 bilaterally, motor strength 5/5 bilaterally, sensation intact PSYCH: Normal mood, normal affect. SKIN: Warm, dry, normal turgor, no rashes or lesions noted Laboratory Results - last 24 hr 10/05/17 10/05/17 05:15 05:15 WBC 11.2 H RBC 3.44 L Hgb 9.3 L D Hct 29.1 L MCV 84.6 MCH 27.2 MCHC 32.1 RDW 13.6 Plt Count 175 MPV 8.9 Neutrophils % 62.3 D Lymphocytes % 31.7 D Monocytes % 5.3 Eosinophils % 0.4 D Basophils % 0.3 D Sodium 141 Potassium 3.7 Chloride 107 Carbon Dioxide 27 Anion Gap 7 L BUN 7 Creatinine 0.7 Creat Clearance w eGFR > 60 Random Glucose 82 Calcium 7.0 L Phosphorus 2.2 L Magnesium 2.2 Total Bilirubin 0.5 AST 45 H ALT 21 Alkaline Phosphatase 47 Total Protein 5.2 L Albumin 2.5 L Active Medications Generic Name Dose Route Start Last Admin Trade Name Freq PRN Reason Stop Dose Admin Amitriptyline HCl 150 mg 10/04/17 22:00 10/04/17 22:49 Elavil - PO Not Given HS KODI Chlorhexidine Gluconate 1 applic 10/03/17 22:00 10/04/17 22:49 Hibiclens For Decolonization - TP 1 applic HS KODI Administration Diazepam 5 mg 10/04/17 09:17 10/04/17 22:48 Valium - PO 5 mg Q8H PRN Administration MUSCLE SPASMS Diphenhydramine HCl 50 mg 10/04/17 12:50 10/05/17 04:37 Benadryl Injection - IVPUSH 50 mg Q6H PRN Administration FOR ITCHING Docusate Sodium 100 mg 10/04/17 10:00 10/04/17 21:36 Colace - PO 100 mg BID KODI Administration Fluticasone Propionate 2 spray 10/04/17 10:00 10/04/17 09:32 Flonase - NS 2 sprays DAILY KODI Administration Heparin Sodium (Porcine) 5,000 unit 10/05/17 08:00 Heparin - SQ TID KODI Ketorolac Tromethamine 30 mg 10/03/17 21:50 10/05/17 04:05 Toradol Injection - IVPUSH 10/08/17 01:59 30 mg Q8H-IV PRN Administration PAIN LEVEL 1-5 Morphine Sulfate 4 mg 10/04/17 12:58 10/05/17 04:58 Morphine Sulfate IVPUSH 4 mg Q4H PRN Administration PAIN LEVEL 7 - 10 Mupirocin 1 applic 10/03/17 22:00 10/04/17 21:35 Bactroban Ointment (For Decolonization) - NS 10/08/17 21:59 1 applic BID KODI Administration Ondansetron HCl 4 mg 10/03/17 23:00 10/04/17 17:00 Zofran Injection IVPUSH 4 mg Q6H PRN Administration NAUSEA Ranitidine HCl 150 mg 10/03/17 22:00 10/04/17 21:39 Zantac - PO 150 mg BID KODI Administration Zolpidem Tartrate 10 mg 10/03/17 22:08 Ambien - PO HS PRN INSOMNIA ASSESSMENT/PLAN: 37 year old female with a past medical history of anxiety, depression, disc herniation, chronic back pain is s/p L4-S1 laminectomy and decompression w/ fusion performed by Dr. Damaso Kathleen #Back Pain: POD2 L4-S1 laminectomy/decompression w/ fusion -continue IV toradol, tylenol, and valium with breakthrough morphine -sagastume out, making urine -zofran for nausea -continue amitriptyline -soft diet for lunch #Insomnia: controlled -patient is on ambien 10, continue HS PRN #Anxiety: -continue diazepam Q8 as needed -GERD: -continue ranitidine 150 QD #Prophylaxis -SCDs, no heparin on this patient #FEN: -no standing fluids -replete lytes in Am -Clear liquid diet for now #Disposition: -continue to monitor in ICU Visit type - Emergency Visit Emergency Visit: No - New Patient This patient is new to me today: No - Critical Care Critical Care patient: Yes Total Critical Care Time (in minutes): 35 Critical Care Statement: The care of this patient involved high complexity decision making to prevent further life threatening deterioration of the patient 's condition and/or to evaluate & treat vital organ system(s) failure or risk of failure. <Larissa Kwok - Last Filed: 10/05/17 19:29> Physical Exam: Patient seen and examined with the resident. POD #2 L4-S1 Laminectomy with decompression and Fusion. Patient is on BCP at home due to having heavy bleed, refuses to stop taking the medication since does not want to have heavy bleed. Patient was explained the risk of having DVT and BCP is a high risk specially post op, will start the patient on ASpirin 325mg po bid as per Ortho recommendations. Vital Signs Temperature 98.4 F 10/05/17 18:00 Pulse Rate 101 H 10/05/17 18:00 Respiratory Rate 16 10/05/17 18:00 Blood Pressure 116/64 10/05/17 18:00 O2 Sat by Pulse Oximetry (%) 100 10/05/17 08:06 CBCD WBC 11.2 K/mm3 (4.0-10.0) H 10/05/17 05:15 RBC 3.44 M/mm3 (3.60-5.2) L 10/05/17 05:15 Hgb 9.3 GM/dL (10.7-15.3) L D 10/05/17 05:15 Hct 29.1 % (32.4-45.2) L 10/05/17 05:15 MCV 84.6 fl (80-96) 10/05/17 05:15 MCHC 32.1 g/dl (32.0-36.0) 10/05/17 05:15 RDW 13.6 % (11.6-15.6) 10/05/17 05:15 Plt Count 175 K/MM3 (134-434) 10/05/17 05:15 MPV 8.9 fl (7.5-11.1) 10/05/17 05:15 CMP Sodium 141 mmol/L (136-145) 10/05/17 05:15 Potassium 3.7 mmol/L (3.5-5.1) 10/05/17 05:15 Chloride 107 mmol/L (98-107) 10/05/17 05:15 Carbon Dioxide 27 mmol/L (21-32) 10/05/17 05:15 Anion Gap 7 (8-16) L 10/05/17 05:15 BUN 7 mg/dL (7-18) 10/05/17 05:15 Creatinine 0.7 mg/dL (0.55-1.02) 10/05/17 05:15 Creat Clearance w eGFR > 60 (>60) 10/05/17 05:15 Random Glucose 82 mg/dL (74-106) 10/05/17 05:15 Calcium 7.0 mg/dL (8.5-10.1) L 10/05/17 05:15 Total Bilirubin 0.5 mg/dL (0.2-1.0) 10/05/17 05:15 AST 45 U/L (15-37) H 10/05/17 05:15 ALT 21 U/L (12-78) 10/05/17 05:15 Alkaline Phosphatase 47 U/L (45-117) 10/05/17 05:15 Total Protein 5.2 g/dl (6.4-8.2) L 10/05/17 05:15 Albumin 2.5 g/dl (3.4-5.0) L 10/05/17 05:15 Current Medications Generic Name Dose Route Start Last Admin Trade Name Freq PRN Reason Stop Dose Admin Acetaminophen 650 mg 10/05/17 18:00 10/05/17 18:47 Tylenol - PO 650 mg QID KODI Administration Amitriptyline HCl 150 mg 10/04/17 22:00 10/04/17 22:49 Elavil - PO Not Given HS KODI Aspirin 325 mg 10/05/17 22:00 Asa - PO BID KODI Chlorhexidine Gluconate 1 applic 10/03/17 22:00 10/04/17 22:49 Hibiclens For Decolonization - TP 1 applic HS KODI Administration Diazepam 5 mg 02/27/18 09:17 10/05/17 09:42 Valium - PO 5 mg Q8H PRN Administration MUSCLE SPASMS Diphenhydramine HCl 50 mg 10/04/17 12:50 10/05/17 11:21 Benadryl Injection - IVPUSH 50 mg Q6H PRN Administration FOR ITCHING Docusate Sodium 100 mg 10/04/17 10:00 10/05/17 09:36 Colace - PO 100 mg BID KODI Administration Fluticasone Propionate 2 spray 10/04/17 10:00 10/05/17 09:36 Flonase - NS 2 sprays DAILY KODI Administration Morphine Sulfate 6 mg 10/05/17 11:11 10/05/17 11:26 Morphine Injection - IVPUSH 6 mg Q4H PRN Administration PAIN LEVEL 7 - 10 Mupirocin 1 applic 10/03/17 22:00 10/05/17 09:36 Bactroban Ointment (For Decolonization) - NS 10/08/17 21:59 1 applic BID KODI Administration Patient's Own 1 each 10/06/17 10:00 Medication ( PO Desogestrel And DAILY KODI Ethinyl Estradiol 0. 15mg/0.03mg) Ondansetron HCl 4 mg 10/03/17 23:00 10/05/17 11:38 Zofran Injection IVPUSH 4 mg Q6H PRN Administration NAUSEA Ranitidine HCl 150 mg 10/03/17 22:00 10/05/17 09:36 Zantac - PO 150 mg BID KODI Administration Zolpidem Tartrate 10 mg 10/03/17 22:08 Ambien - PO HS PRN INSOMNIA Home Medications Medication Instructions Recorded Amitriptyline HCl 150 mg PO HS 08/11/17 Desogestrel-Ethinyl Estradiol 1 each PO DAILY 08/11/17 [Apri] Fluticasone Prop 0.05% Nasal 1 - 2 spray NS DAILY 08/11/17 [Flonase -] Hydrocodone/Acetaminophen 1 each PO PRN PRN 08/11/17 [Hydrocodone-Acetamin 5-300 mg] Ranitidine HCl 150 mg PO BID 08/11/17 Zolpidem Tartrate [Ambien] 10 mg PO HS 08/11/17 Cyclobenzaprine HCl [Flexeril 10 10 tab PO DAILY 10/04/17 mg]
[2017-10-05] MEDS: FLUTICASONE PROP 0.05% 16 GM NASAL SPRAY NS SCH (09:36)
[2017-10-05] MEDS: RANITIDINE HCL 150 MG TABLET (FP) PO SCH ×2 (09:36→21:13)
[2017-10-05] MEDS: DOCUSATE SODIUM 100 MG CAPSULE (FP) PO SCH ×2 (09:36→21:12)
[2017-10-05] MEDS: MUPIROCIN 2% TOPICAL OINTMENT FOR DECOLONIZATION NS SCH ×2 (09:36→21:12)
[2017-10-05] MEDS: diazePAM 5 MG TABLET PO PRN ×2 (09:42→23:20)
[2017-10-05] MEDS ORDERED: MORPHINE SULFATE 10 MG/1 ML *VIAL IVPUSH PRN (11:11)
[2017-10-05] MEDS ORDERED: morphine SULFATE 4 MG/ML VIAL ONE ×2 (11:17→11:24)
[2017-10-05] MEDS: ONDANSETRON 4 MG/2 ML VIAL IVPUSH PRN (11:38)
--- NOTE | 2017-10-05 11:39 | PN ---
Teaching Attending Note Name of Resident: Che Serrano ATTENDING PHYSICIAN STATEMENT I saw and evaluated the patient. I reviewed the resident's note and discussed the case with the resident. I agree with the resident's findings and plan as documented. SUBJECTIVE: Pt seen and examined in the ICU. Pain better controlled. No itchiness with narcotics with benadryl. Was OOB in chair yesterday for 2 hours yesterday. OBJECTIVE: Last Vital Signs Temp Pulse Resp BP Pulse Ox 98.8 F 90 17 122/81 100 10/05/17 02:00 10/05/17 10:00 10/05/17 10:00 10/05/17 10:00 10/05/17 08:06 Intake & Output 10/02/17 10/03/17 10/04/17 10/05/17 23:59 23:59 23:59 23:59 Intake Total 4800 2980 200 Output Total 1305 3550 2560 Balance 3495 -570 -2360 Weight 124.738 kg 129.841 kg 129.3 kg Gen: NAD at rest Heart: RRR Lung: decreased breath sounds at the bases Abd: soft, nontender Ext: no edema CBC, BMP 10/05/17 05:15 10/05/17 05:15 Active Medications Amitriptyline HCl (Elavil -) 150 mg PO HS [facility] Last Admin: 10/04/17 22:49 Dose: Not Given Chlorhexidine Gluconate (Hibiclens For Decolonization -) 1 applic TP HS [facility] Last Admin: 10/04/17 22:49 Dose: 1 applic Diazepam (Valium -) 5 mg PO Q8H PRN PRN Reason: MUSCLE SPASMS Last Admin: 10/05/17 09:42 Dose: 5 mg Diphenhydramine HCl (Benadryl Injection -) 50 mg IVPUSH Q6H PRN PRN Reason: FOR ITCHING Last Admin: 10/05/17 11:21 Dose: 50 mg Docusate Sodium (Colace -) 100 mg PO BID [facility] Last Admin: 10/05/17 09:36 Dose: 100 mg Fluticasone Propionate (Flonase -) 2 spray NS DAILY [facility] Last Admin: 10/05/17 09:36 Dose: 2 sprays Ketorolac Tromethamine (Toradol Injection -) 30 mg IVPUSH Q8H-IV PRN PRN Reason: PAIN LEVEL 1-5 Stop: 10/08/17 01:59 Last Admin: 10/05/17 04:05 Dose: 30 mg Morphine Sulfate (Morphine Injection -) 6 mg IVPUSH Q4H PRN PRN Reason: PAIN LEVEL 7 - 10 Last Admin: 10/05/17 11:26 Dose: 6 mg Mupirocin (Bactroban Ointment (For Decolonization) -) 1 applic NS BID [facility] Stop: 10/08/17 21:59 Last Admin: 10/05/17 09:36 Dose: 1 applic Ondansetron HCl (Zofran Injection) 4 mg IVPUSH Q6H PRN PRN Reason: NAUSEA Last Admin: 10/05/17 11:38 Dose: 4 mg Ranitidine HCl (Zantac -) 150 mg PO BID [facility] Last Admin: 10/05/17 09:36 Dose: 150 mg Zolpidem Tartrate (Ambien -) 10 mg PO HS PRN PRN Reason: INSOMNIA ASSESSMENT AND PLAN: Lumbar Radiculopathy/Spinal Instability s/p S4-S1 Spinal Fusion Depression/Anxiety h/o ?Distal DVT - pain control - incentive spirometry - premedicate with benadryl prior to narcotics - hold OCP for now - continue home psych meds - monitor H/H - monitor drain output - PO as tolerated - mechanical DVT prophylaxis - activity/PO/disposition per surgery - can transfer to floor from medical standpoint
--- NOTE | 2017-10-05 13:21 | PN ---
Physical Exam: SUBJECTIVE: Patient seen and examined at bed side this morning. Feels better than yesterday. But still requiring Morphine, Valium for pain Q4H. Benadryl before getting the morphine helps her itching. Has pain at the surgical site. Denies chest pain, sob, cough, palpitation, abdominal pain, nausea or vomiting. Hasn't moved her bowel, passing gas. Tolerated liquid diet this morning. Tingling and numbness of her fingers has resolved. OOB to chair yesterday for 2 hrs. No acute overnight events. OBJECTIVE: Vital Signs Period Temp Pulse Resp BP Sys/García Pulse Ox Last 24 Hr 98.4 F-98.8 F 81-102 13-19 117-132/64-81 100-100 GENERAL: The patient is awake, alert, and fully oriented, in no acute distress. HEAD: Normal with no signs of trauma. EYES: EOM intact, no pallor or icterus. ENT: Ears normal, moist mucous membranes. NECK: Supple. LUNGS: Decreased breath sounds bilaterally, clear to auscultation bilaterally, no wheezes, no crackles, no accessory muscle use. HEART: Regular rate and rhythm, S1, S2 without murmur. ABDOMEN: Soft, nontender, nondistended, normoactive bowel sounds, no guarding, no rebound, no hepatosplenomegaly, no masses. EXTREMITIES: 2+ pulses, warm, well-perfused, no edema. NEUROLOGICAL: No facial droop, power 5/5 in all extremities. Cranial nerves II through XII grossly intact. Normal speech, gait not observed. PSYCH: Normal mood, normal affect. SKIN: Warm, dry, normal turgor, no rashes or lesions noted Laboratory Results - last 24 hr 10/05/17 10/05/17 05:15 05:15 WBC 11.2 H RBC 3.44 L Hgb 9.3 L D Hct 29.1 L MCV 84.6 MCH 27.2 MCHC 32.1 RDW 13.6 Plt Count 175 MPV 8.9 Neutrophils % 62.3 D Lymphocytes % 31.7 D Monocytes % 5.3 Eosinophils % 0.4 D Basophils % 0.3 D Sodium 141 Potassium 3.7 Chloride 107 Carbon Dioxide 27 Anion Gap 7 L BUN 7 Creatinine 0.7 Creat Clearance w eGFR > 60 Random Glucose 82 Calcium 7.0 L Phosphorus 2.2 L Magnesium 2.2 Total Bilirubin 0.5 AST 45 H ALT 21 Alkaline Phosphatase 47 Total Protein 5.2 L Albumin 2.5 L Active Medications Generic Name Dose Route Start Last Admin Trade Name Freq PRN Reason Stop Dose Admin Amitriptyline HCl 150 mg 10/04/17 22:00 10/04/17 22:49 Elavil - PO Not Given HS KODI Chlorhexidine Gluconate 1 applic 10/03/17 22:00 10/04/17 22:49 Hibiclens For Decolonization - TP 1 applic HS KODI Administration Diazepam 5 mg 10/04/17 09:17 10/05/17 09:42 Valium - PO 5 mg Q8H PRN Administration MUSCLE SPASMS Diphenhydramine HCl 50 mg 10/04/17 12:50 10/05/17 11:21 Benadryl Injection - IVPUSH 50 mg Q6H PRN Administration FOR ITCHING Docusate Sodium 100 mg 10/04/17 10:00 10/05/17 09:36 Colace - PO 100 mg BID KODI Administration Fluticasone Propionate 2 spray 10/04/17 10:00 10/05/17 09:36 Flonase - NS 2 sprays DAILY KODI Administration Ketorolac Tromethamine 30 mg 10/03/17 21:50 10/05/17 04:05 Toradol Injection - IVPUSH 10/08/17 01:59 30 mg Q8H-IV PRN Administration PAIN LEVEL 1-5 Morphine Sulfate 6 mg 10/05/17 11:11 10/05/17 11:26 Morphine Injection - IVPUSH 6 mg Q4H PRN Administration PAIN LEVEL 7 - 10 Mupirocin 1 applic 10/03/17 22:00 10/05/17 09:36 Bactroban Ointment (For Decolonization) - NS 10/08/17 21:59 1 applic BID KODI Administration Ondansetron HCl 4 mg 10/03/17 23:00 10/05/17 11:38 Zofran Injection IVPUSH 4 mg Q6H PRN Administration NAUSEA Ranitidine HCl 150 mg 10/03/17 22:00 10/05/17 09:36 Zantac - PO 150 mg BID KODI Administration Zolpidem Tartrate 10 mg 10/03/17 22:08 Ambien - PO HS PRN INSOMNIA ASSESSMENT/PLAN: Patient is a 37 year old female with a past medical history of anxiety, depression, disc herniation, chronic back pain is s/p L4-S1 laminectomy and decompression w/ fusion monitoring in ICU. # Neurology Back pain: POD -2, L4-S1 laminectomy/decompression w/ fusion with no post op complications. Increased IV morphine 4 to 6mg Q4H PRN, if higher dose is required, will switch to Dilaudid. Continue Valium PRN, Bendryl Incentive spirometer # GI GERD Continue Ranitidine # Romero removed, no problems in urination. # FEN Not on IV fluids Electrolytes: Hypophosphatemia-repleted, repeat in AM Full liquid diet # Prophylaxis For DVT: No heparin as per surgery, early ambulation, SCD's For GI: On Ranitidine # Code Status: Full Code # Dispo: Hemodynamically stable and can be transferred to Med-Surg, waiting to confirm with Dr. Cool about the transfer. Illness, Investigation and Plan of care explained to the patient. She verbalized understanding. Case seen and discussed with Dr. Mcgee. Visit type - Emergency Visit Emergency Visit: Yes ED Registration Date: 10/03/17 Care time: The patient presented to the Emergency Department on the above date and was hospitalized for further evaluation of their emergent condition. - New Patient This patient is new to me today: No - Critical Care Critical Care patient: Yes Total Critical Care Time (in minutes): 40 Critical Care Statement: The care of this patient involved high complexity decision making to prevent further life threatening deterioration of the patient 's condition and/or to evaluate & treat vital organ system(s) failure or risk of failure. - Discharge Referral Referred to [facility] No
--- NOTE | 2017-10-05 13:46 | PN ---
Progress Note (short form) - Note Progress Note: POD#2 Pt oob to chair today, she ambulated to the restroom. Tolerating the fulls, minimal flatus, no BM. No CP/SOB. The patient has a h/o of superficial thrombophlebitis in the right leg in the past, denies any h/o DVT at the time and wasn't treated with any oral anticoagulation. She takes OCP for menorrhagia and states that if she if off her OCP for several days she will have bleeding. She doesn't want to stop takes her pills at this time for concern of bleeding. Myself as well of the ICU staff have discussed the concern for DVT risk since she has limited mobility and is taking her OCP meds(she took her own dose for /tue) After D/w Dr. Cool, ICU and the medical team we can begin ASA bid for DVT ppx. Her pain is somewhat better still having some itching with Morphine but improved when getting benadryl also. Left finger tingling resolved. Vital Signs Period Temp Pulse Resp BP Sys/García Pulse Ox Last 24 Hr 98.4 F-98.8 F 81-102 13-19 117-132/64-81 100-100 GEN: OOB to chair Back: dressing c/d/i. Drain removed(intact) LE: no calf tendnerss/swelling noted Neuro: improved right straight leg strength 4/5 CBC, BMP 10/05/17 05:15 10/05/17 05:15 A/P: 37 yo female s/p posterior lamienctomy/decompression of L4-S1 with interbody fusion Full liquid diet and advance as tolerated Her OCP meds were sent down to the paharmacy so she could take her own Begin Asa 325mg po bid Spoke with the patient about the need for ambulation/excercises to her lower ext when in bed PT Oral medications as needed for pain D/w Dr. Cool
--- NOTE | 2017-10-05 13:58 | PATH ---
Surgical Pathology Report Patient Name: ASHVIN HARRELL [facility]. Rec. #: [id number] /Age/Gender: 1980 (Age: 37) / F Account: [id number] Location: ICU PIN PULLER Taken: 10/03/2017 Received: 10/04/2017 Reported: 10/05/2017 Physicians: Damaso Cool M.D. Specimen(s) Received DISC Clinical History Lumbar with sciatica left side Final Diagnosis INTERVERTEBRAL DISC, SITE NOT SPECIFIED, PARTIAL EXCISION: PORTIONS OF INTERVERTEBRAL DISC AND SMALL FRAGMENTS OF BONE. Electronically Signed Mauricio Murphy M.D. Gross Description Received in formalin labeled "disc," is a 4.0 x 3.2 x 0.4 cm aggregate of oakley fragments of fibrocartilaginous tissue. A product support sales representative portion is submitted in one cassette. /10/04/201710/04/2017
[2017-10-05] MEDS: ACETAMINOPHEN 325 MG TABLET (FP) PO SCH ×3 (18:47→23:20)
[2017-10-05] MEDS ORDERED: HYDROmorphone HCL CARPU-JECT 1 MG/1 ML DISP.SYRIN IVPUSH PRN (20:07)
[2017-10-05] MEDS ORDERED: HYDROmorphone HCL 2 MG TABLET PO PRN (20:32)
[2017-10-05] MEDS ORDERED: PT OWN MED DRAWER 7, Y5N ONE (21:07)
[2017-10-05] MEDS: CHLORHEXIDINE GLUCONATE 4% CLEANSER FOR DECOLONIZATION TP SCH (21:12)
[2017-10-05] MEDS: HYDROmorphone HCL 2 MG TABLET PO PRN (21:13)
[2017-10-05] MEDS: ASPIRIN 325 MG TABLET PO SCH (21:14)
[2017-10-05] MEDS ORDERED: SENNOSIDES 8.6MG TABLET (FP) PO PRN (22:00)
--- NOTE | 2017-10-05 22:07 | PN ---
Progress Note (short form) - Note Progress Note: Pt complaining of pain and does not want morphine because it makes her feel sick. Per day teams' notes if pt required better pain control could use Dilaudid. Facility does not have IV Dilaudid due to national shortage. Ordered 2mg PO q6h for pain level 7-10 with holding parameters for somnolence or respirations <10.
[2017-10-05] MEDS: AMITRIPTYLINE HCL 75 MG TABLET PO SCH (23:20)
[2017-10-06 06:14] LABS: BASO % 0.3 % (0-2.0); EOS % 1.1 % (0-4.5); HEMATOCRIT 28.7 % (32.4-45.2); HEMOGLOBIN 9.4 GM/dL (10.7-15.3); LYMPH % 19.7 % (8-40); MCH 27.7 pg (25.7-33.7); MCHC 32.9 g/dl (32.0-36.0); MEAN CELL VOLUME 84.1 fl (80-96); MEAN PLT VOLUME 9.1 fl (7.5-11.1); MONO % 8.4 % (3.8-10.2); NEUT % 70.5 % (42.8-82.8); PLATELET COUNT 188 K/MM3 (134-434); RBC 3.41 M/mm3 (3.60-5.2); RDW 13.4 % (11.6-15.6); WHITE BLOOD COUNT 11.9 K/mm3 (4.0-10.0)
[2017-10-06 06:39] LABS: CHLORIDE 103 mmol/L (98-107); POTASSIUM 3.5 mmol/L (3.5-5.1); SODIUM 138 mmol/L (136-145)
[2017-10-06 06:45] LABS: ANION GAP 14 (8-16); BLOOD UREA NITROGEN 5 mg/dL (7-18); CALCIUM 7.6 mg/dL (8.5-10.1); CO2 21 mmol/L (21-32); CREATININE 0.7 mg/dL (0.55-1.02); GLUCOSE,RANDOM 118 mg/dL (74-106); PHOSPHOROUS 2.5 mg/dL (2.5-4.9)
--- NOTE | 2017-10-06 07:43 | PN ---
Progress Note, Physician History of Present Illness: 37 y/o F w/PMH of DVT (per patient report in 11/2015, right calf, dx by US, and never placed on anticoagulation), anxiety, depression, disc herniation from prior fall, who is post-op from posterior laminectomy/decompression of L4-S1 with interbody fusion by Dr. Cool. She currently has back pain s/p surgery due to surgery but otherwise has no complaints at this time. She denies N/V/F/C, CP , SOB, abd pain. She is on OCP for h/o heavy vaginal bleeding and anemia. She has never been a cigarette smoker. She was transferred to ICU after uncomplicated posterior lamienctomy/ decompression of L4-S1 with interbody fusion for spinal instability/ radiculopathy, general anesthesia, EBL 750, received perioperative Ancef/ Vancomycin. 24 HOUR EVENTS Low-grade fever last night. Romero out and voiding. Last night per Dr. Metcalf's progress update: "Pt complaining of pain and does not want morphine because it makes her feel sick. Per day teams' notes if pt required better pain control could use Dilaudid. Facility does not have IV Dilaudid due to national shortage. Ordered 2mg PO q6h for pain level 7-10 with holding parameters for somnolence or respirations <10." SUBJECTIVE Having flatus but no BM. Nauseated and having worsened back pain last NOC after moving around too much. 24 HOUR INTAKE & OUTPUT Intake: 4800cc Output: 1305cc Net: +3695cc BM: None reported LINES/TUBES/DRAINS Wound drain placed 10/03 - Current Medication List Current Medications: Active Medications Acetaminophen (Tylenol -) 650 mg PO QID [facility] Last Admin: 10/05/17 23:20 Dose: 650 mg Amitriptyline HCl (Elavil -) 150 mg PO HS [facility] Last Admin: 10/05/17 23:20 Dose: 150 mg Aspirin (Asa -) 325 mg PO BID [facility] Last Admin: 10/05/17 21:14 Dose: 325 mg Chlorhexidine Gluconate (Hibiclens For Decolonization -) 1 applic TP HS [facility] Last Admin: 10/05/17 21:12 Dose: 1 applic Diazepam (Valium -) 5 mg PO Q8H PRN PRN Reason: MUSCLE SPASMS Last Admin: 10/05/17 23:20 Dose: 5 mg Diphenhydramine HCl (Benadryl Injection -) 50 mg IVPUSH Q6H PRN PRN Reason: FOR ITCHING Last Admin: 10/05/17 21:13 Dose: 50 mg Docusate Sodium (Colace -) 100 mg PO BID [facility] Last Admin: 10/05/17 21:12 Dose: 100 mg Fentanyl (Sublimaze Injection -) 50 mcg IVPUSH Q2H PRN PRN Reason: PAIN LEVEL 4 - 6 Stop: 10/07/17 02:29 Last Admin: 10/06/17 03:09 Dose: 50 mcg Fluticasone Propionate (Flonase -) 2 spray NS DAILY [facility] Last Admin: 10/05/17 09:36 Dose: 2 sprays Hydromorphone HCl (Dilaudid -) 2 mg PO Q6H PRN PRN Reason: PAIN LEVEL 7 - 10 Last Admin: 10/05/17 21:13 Dose: 2 mg Mupirocin (Bactroban Ointment (For Decolonization) -) 1 applic NS BID [facility] Stop: 10/08/17 21:59 Last Admin: 10/05/17 21:12 Dose: 1 applic Patient's Own Medication ( Desogestrel And Ethinyl Estradiol 0. 15mg/0.03mg) 1 each PO DAILY [facility] Ondansetron HCl (Zofran Injection) 4 mg IVPUSH Q6H PRN PRN Reason: NAUSEA Last Admin: 10/05/17 11:38 Dose: 4 mg Ranitidine HCl (Zantac -) 150 mg PO BID [facility] Last Admin: 10/05/17 21:13 Dose: 150 mg Senna (Senna -) 2 tab PO HS PRN PRN Reason: CONSTIPATION Zolpidem Tartrate (Ambien -) 10 mg PO HS PRN PRN Reason: INSOMNIA Last Admin: 10/05/17 23:20 Dose: 10 mg - Objective Vital Signs: Vital Signs Temperature 100.2 F H 10/06/17 02:15 Pulse Rate 102 H 10/06/17 04:00 Respiratory Rate 18 10/06/17 04:00 Blood Pressure 131/57 10/06/17 04:00 O2 Sat by Pulse Oximetry (%) 98 10/05/17 19:53 Constitutional: Yes: Well Nourished, Calm, Mild Distress, Obese, Other (appears uncomfortable, laying still on back, answering questions appropriately, moving legs constantly) Eyes: Yes: WNL, Conjunctiva Clear, EOM Intact HENT: Yes: WNL, Atraumatic, Normocephalic Neck: Yes: WNL, Supple, Trachea Midline Cardiovascular: Yes: Tachycardia. No: Murmur Respiratory: Yes: WNL, Regular, CTA Bilaterally Gastrointestinal: Yes: WNL, Soft, Abdomen, Obese, Hypoactive Bowel Sounds (but improving). No: Distention, Tenderness Musculoskeletal: Yes: Back Pain, Other (mild BLE pain but no calf pain) Extremities: No: Calf Tenderness, Cool, Cyanosis, Deformity, Erythema, Pallor Edema: No Peripheral Pulses: Left Doralis Pedis: 2+, Right Dorsalis Pedis: 2+ Integumentary: Yes: WNL. No: Jaundice Wound/Incision: Yes: Clean/Dry, Dressing Dry and Intact Neurological: Yes: WNL, Alert, Oriented. No: Loss of Sensation ...Motor Strength: WNL Psychiatric: Yes: WNL, Alert, Oriented Labs: CBC, BMP 10/06/17 05:00 10/06/17 05:00 Assessment/Plan MUSCULOSKELETAL #S/P Spinal Surgery. Posterior laminectomy/decompression of L4-S1 with interbody fusion, OR day was 10/03/[address] Cool. EBL 750, received perioperative Ancef/Vancomycin. Does not want morphine be cause it makes her feel sick. National shortage of IV Dilaudid. -Dr. Cool following -Pain management regimen changed (now Tylenol, Toradol, Flexeril, ASA, will give morphine as prn) -Incentive spirometer -Advance activity per Drs. Cool HEME #High risk for DVT/PE. Patient [id number] female, on OCP, now immobilized s/p spinal surgery. Patient states no known personal or family h/o DVT/PE. Currently no calf pain, CP, or SOB. Chronic h/o RLE>LLE leg swelling, Initially told the ICU team she had a h/o provoked RLE DVT after injury in 2015, but was never on anticoagulant, PCP was not concerned, subsequently determined she had superficial venous thrombosis/thrombophlebitis. -Patient adamant she must continue her OCP as she has h/o dysmenorrhea with menorrhagia and anemia -SCDs, TEDs -Monitor closely for sxs, serial BLE exams INTEGUMENTARY #Pruritis, intermittent after opiate pain medication dosing. Most likely a mild reaction to these medications. None in the past day. -Benadryl 50 mg IVPUSH prn before opiate pain medication PSYCH #Depression, chronic. Patient on amitriptylene. -Increased risk for QTc prolongation, arrhythmia, BP dysregulation -Monitor for side effect sxs #Anxiety, chronic. Patient on diazepam. -Continue diazepam #Insomnia, chronic. Patient on zolpidem. -Continue zolpidem FEN -Monitor CMP, Mg, Phos, AND UOP -Advance diet as tolerated -Adequate hydration -Zofran for nausea PPX DVT: SCDs, TEDs GI: Ranitidine PT: Order placed CODE STATUS Full code DISPO Appropriate now for Med/Surg
[2017-10-06] MEDS: HYDROmorphone HCL 2 MG TABLET PO PRN ×4 (07:56→23:57)
--- NOTE | 2017-10-06 08:11 | PN ---
Progress Note (short form) - Note Progress Note: Surgery POD #3 L3-S1 decompression and fusion Pt seen and examined at bedside. She c/o having lots of pain over surgical site and radiating down both legs. She say this is the worst post op pain she has had since the surgery as the CIRCUS RIDER was d/c'd yesterday. She states that she felt chills early this morning and had a low grade temp of 100.2. She is Tolerating a regular diet with minimal flatus, no BM yet. She denies any CP, SOB, N/V. Vital Signs Temp 100.2 F H 10/06/17 02:15 Pulse 102 H 10/06/17 04:00 Resp 18 10/06/17 04:00 BP 131/57 10/06/17 04:00 Pulse Ox 98 10/05/17 19:53 Intake & Output 10/05/17 10/05/17 10/06/17 11:59 23:59 11:59 Intake Total 200 655 320 Output Total 2560 Balance -2360 655 320 Weight 285 lb 0.923 oz Intake: IV 15 20 20 R Hand 10/03 15 22 LFA 10/06/17 20 IVPB 200 Oral 640 300 Output: Drainage 60 Back 60 Urine 2500 Romero 2500 Other: Voiding Method Bedpan Toilet # Unmeasured Voids Void 2 1 2 Weight Measurement Method Built in [facility] CBC, BMP 10/06/17 05:00 10/06/17 05:00 PE: A&Ox3, anxious Unlabored resp on RA Incision dressing saturated over inferior portion with serosanginous discharge. Steri strips moist and removed. Incision c/d/i with some oozing at inferior apex but no signs of active bleeding or d/c. pressure applied to margins along incision with no d/c expressed and no signs of collection or fluctuance. surrounding tissue intact and no evidence of erythema or edema. Redressed with steri strips and pressure dressing. B/L LE compartments soft and supple, sensation to light touch intact throughout and 5/5 dorsi/plantar flexion with +2 pedal pulses. Problem List - Problems (1) Herniated intervertebral disc Assessment/Plan: POD#3 multilevel Lumbar decompression and fusion with some anxiety and pain appropriate to status in patient who is sensitive to several pain medication and has high pain demands. Plan: 1) pain cocktail with around the clock Tylenol, tramadol and morphine for breakthrough, No flexeril as patient on amytriptyline and ultram 2) Transfer to floor today- med surg 3) OOB with PT- WBAT 4) Encourage IS every hour 5) DVT prophylaxis with scds and ASA BID 6) D/c planning for home if pain controlled, incision dry and afebrile. Evaluation and plan discussed with Dr Damaso Cool. Code(s): [id number] -
[2017-10-06] MEDS ORDERED: MORPHINE SULFATE 10 MG/1 ML *VIAL IVPUSH PRN (08:22)
--- NOTE | 2017-10-06 08:49 | PN ---
<Maico Lewis - Last Filed: 10/06/17 11:23> Physical Exam: SUBJECTIVE: Patient seen and examined at bedside. Patient had drain removed yesterday. states that she is in severe pain near the incision site on her back. No fevers or chills, but low grade temp of 100.2 reported this morning. Only got morphine which she states did not help her. OBJECTIVE: Vital Signs Period Temp Pulse Resp BP Sys/García Pulse Ox Last 24 Hr 98.2 F-100.2 F 80-102 16-20 107-134/57-83 98 GENERAL: A&Ox3, no acute distress EYES: PERRLA, EOMI LUNGS: CTA, no wheezing HEART: RRR no murmurs rubs or gallops ABDOMEN: obese, soft, nontender EXTREMITIES: 2+ pulses, warm, well-perfused, no edema. NEUROLOGICAL: CN II-XII intact, reflexes 2/6 bilaterally, motor strength 5/5 bilaterally, sensation intact PSYCH: Normal mood, normal affect. SKIN: Warm, dry, normal turgor, no rashes or lesions noted, dressing over incision on back is wet, non-purulent, mild serosanguinous drainage noted, dressing changed. Laboratory Results - last 24 hr 10/06/17 10/06/17 05:00 05:00 WBC 11.9 H RBC 3.41 L Hgb 9.4 L Hct 28.7 L MCV 84.1 MCH 27.7 MCHC 32.9 RDW 13.4 Plt Count 188 MPV 9.1 Neutrophils % 70.5 Lymphocytes % 19.7 D Monocytes % 8.4 Eosinophils % 1.1 D Basophils % 0.3 Sodium 138 Potassium 3.5 Chloride 103 Carbon Dioxide 21 Anion Gap 14 BUN 5 L Creatinine 0.7 Random Glucose 118 H Calcium 7.6 L Phosphorus 2.5 Magnesium 2.0 Active Medications Generic Name Dose Route Start Last Admin Trade Name Freq PRN Reason Stop Dose Admin Acetaminophen 650 mg 10/05/17 18:00 10/05/17 23:20 Tylenol - PO 650 mg QID [facility] Administration Amitriptyline HCl 150 mg 10/04/17 22:00 10/05/17 23:20 Elavil - PO 150 mg HS [facility] Administration Aspirin 325 mg 10/05/17 22:00 10/05/17 21:14 Asa - PO 325 mg BID [facility] Administration Chlorhexidine Gluconate 1 applic 10/03/17 22:00 10/05/17 21:12 Hibiclens For Decolonization - TP 1 applic HS [facility] Administration Cyclobenzaprine HCl 5 mg 10/06/17 08:30 Flexeril - PO Q6HPO [facility] Diphenhydramine HCl 50 mg 10/04/17 12:50 10/05/17 21:13 Benadryl Injection - IVPUSH 50 mg Q6H PRN Administration FOR ITCHING Docusate Sodium 100 mg 10/04/17 10:00 10/05/17 21:12 Colace - PO 100 mg BID [facility] Administration Fluticasone Propionate 2 spray 10/04/17 10:00 10/05/17 09:36 Flonase - NS 2 sprays DAILY [facility] Administration Morphine Sulfate 6 mg 10/06/17 08:22 Morphine Injection - IVPUSH Q4H PRN PAIN LEVEL 7 - 10 Mupirocin 1 applic 10/03/17 22:00 10/05/17 21:12 Bactroban Ointment (For Decolonization) - NS 10/08/17 21:59 1 applic BID [facility] Administration Patient's Own 1 each 10/06/17 10:00 Medication ( PO Desogestrel And DAILY [facility] Ethinyl Estradiol 0. 15mg/0.03mg) Ondansetron HCl 4 mg 10/03/17 23:00 10/05/17 11:38 Zofran Injection IVPUSH 4 mg Q6H PRN Administration NAUSEA Ranitidine HCl 150 mg 10/03/17 22:00 10/05/17 21:13 Zantac - PO 150 mg BID [facility] Administration Senna 2 tab 10/05/17 22:00 Senna - PO HS PRN CONSTIPATION Zolpidem Tartrate 10 mg 10/03/17 22:08 10/05/17 23:20 Ambien - PO 10 mg HS PRN Administration INSOMNIA ASSESSMENT/PLAN: 37 year old female with a past medical history of anxiety, depression, disc herniation, chronic back pain is s/p L4-S1 laminectomy and decompression w/ fusion performed by Dr. Damaso Kathleen #Back Pain: POD3 L4-S1 laminectomy/decompression w/ fusion, more pain today -continue Tylenol, tramadol and morphine for pain -patient making urine -transfer to med-surg -zofran for nausea -continue amitriptyline -soft diet tolerated #Insomnia: controlled -patient is on ambien 10, continue HS PRN #Anxiety: -continue diazepam Q8 as needed -GERD: -continue ranitidine 150 QD #Prophylaxis -SCDs, no heparin on this patient #FEN: -no standing fluids -replete lytes in Am -Clear liquid diet for now #Disposition: -can transfer to floor -d/c planning Visit type - Emergency Visit Emergency Visit: No - New Patient This patient is new to me today: No - Critical Care Critical Care patient: Yes Total Critical Care Time (in minutes): 35 Critical Care Statement: The care of this patient involved high complexity decision making to prevent further life threatening deterioration of the patient 's condition and/or to evaluate & treat vital organ system(s) failure or risk of failure. <Larissa Kwok - Last Filed: 10/06/17 17:34> Physical Exam: Patient is comfortable with no acute distress, no headache , no shortness of breath. Patient is on Aspirin for DVT Px as per Ortho. will check with Ortho for the discharge plan.
[2017-10-06] MEDS: ACETAMINOPHEN 325 MG TABLET (FP) PO SCH ×4 (09:29→22:14)
[2017-10-06] MEDS: CYCLOBENZAPRINE HCL 10 MG TABLET (FP) PO SCH ×4 (09:30→19:37)
[2017-10-06] MEDS: DOCUSATE SODIUM 100 MG CAPSULE (FP) PO SCH ×2 (09:30→22:16)
[2017-10-06] MEDS: RANITIDINE HCL 150 MG TABLET (FP) PO SCH ×2 (09:31→22:18)
[2017-10-06] MEDS: ASPIRIN 325 MG TABLET PO SCH (09:31)
[2017-10-06] MEDS: MUPIROCIN 2% TOPICAL OINTMENT FOR DECOLONIZATION NS SCH (09:32)
[2017-10-06] MEDS: FLUTICASONE PROP 0.05% 16 GM NASAL SPRAY NS SCH (10:51)
[2017-10-06] MEDS: ETHINYL ESTRADIOL PO SCH (10:51)
[2017-10-06] MEDS: DESOGESTREL PO SCH (10:51)
--- NOTE | 2017-10-06 11:42 | PN ---
Teaching Attending Note Name of Resident: Jojo Tunde ATTENDING PHYSICIAN STATEMENT I saw and evaluated the patient. I reviewed the resident's note and discussed the case with the resident. I agree with the resident's findings and plan as documented. SUBJECTIVE: Pt seen and examined in the ICU. 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 Nauseous with morphine. Low grade fever to 100.9 overnight. Denies shortness of breath or chest pain. OBJECTIVE: Last Vital Signs Temp Pulse Resp BP Pulse Ox 100.9 F H 96 H 21 141/78 98 10/06/17 10:00 10/06/17 10:00 10/06/17 10:00 10/06/17 10:00 10/06/17 09:00 Intake & Output 10/03/17 10/04/17 10/05/17 10/06/17 23:59 23:59 23:59 23:59 Intake Total 4800 2980 855 320 Output Total 1305 3550 2560 Balance 3495 -570 -1705 320 Weight 124.738 kg 129.841 kg 129.3 kg Gen: NAD at rest Heart: RRR Lung: decreased breath sounds at the bases Abd: soft, nontender Ext: no edema Drain with serosanguinous fluid CBC, BMP 10/06/17 05:00 10/06/17 05:00 Active Medications Acetaminophen (Tylenol -) 650 mg PO QID [facility] Last Admin: 10/06/17 09:29 Dose: 650 mg Amitriptyline HCl (Elavil -) 150 mg PO [facility] Last Admin: 10/05/17 23:20 Dose: 150 mg Aspirin (Asa -) 325 mg PO BID [facility] Last Admin: 10/06/17 09:31 Dose: 325 mg Chlorhexidine Gluconate (Hibiclens For Decolonization -) 1 applic TP [facility] Last Admin: 10/05/17 21:12 Dose: 1 applic Cyclobenzaprine HCl (Flexeril -) 5 mg PO Q6HPO [facility] Last Admin: 10/06/17 09:30 Dose: 5 mg Diphenhydramine HCl (Benadryl Injection -) 50 mg IVPUSH Q6H PRN PRN Reason: FOR ITCHING Last Admin: 10/05/17 21:13 Dose: 50 mg Docusate Sodium (Colace -) 100 mg PO BID [facility] Last Admin: 10/06/17 09:30 Dose: 100 mg Fluticasone Propionate (Flonase -) 2 spray NS DAILY [facility] Last Admin: 10/06/17 10:51 Dose: 2 sprays Morphine Sulfate (Morphine Injection -) 6 mg IVPUSH Q4H PRN PRN Reason: PAIN LEVEL 7 - 10 Mupirocin (Bactroban Ointment (For Decolonization) -) 1 applic NS BID [facility] Stop: 10/08/17 21:59 Last Admin: 10/06/17 09:32 Dose: 1 applic Patient's Own Medication ( Desogestrel And Ethinyl Estradiol 0. 15mg/0.03mg) 1 each PO DAILY [facility] Last Admin: 10/06/17 10:51 Dose: 1 each Ondansetron HCl (Zofran Injection) 4 mg IVPUSH Q6H PRN PRN Reason: NAUSEA Last Admin: 10/05/17 11:38 Dose: 4 mg Ranitidine HCl (Zantac -) 150 mg PO BID [facility] Last Admin: 10/06/17 09:31 Dose: 150 mg Senna (Senna -) 2 tab PO HS PRN PRN Reason: CONSTIPATION Zolpidem Tartrate (Ambien -) 10 mg PO HS PRN PRN Reason: INSOMNIA Last Admin: 10/05/17 23:20 Dose: 10 mg ASSESSMENT AND PLAN: Lumbar Radiculopathy/Spinal Instability s/p S4-S1 Spinal Fusion Depression/Anxiety h/o ?Distal DVT - pain control - incentive spirometry - benadryl as needed - continue home psych meds - monitor H/H - monitor drain output - PO as tolerated - mechanical DVT prophylaxis - activity/PO/disposition per surgery - can transfer to floor from medical standpoint
[2017-10-06] MEDS ORDERED: ONDANSETRON 4 MG/2 ML VIAL IVPUSH PRN (11:56)
[2017-10-06] MEDS ORDERED: METOCLOPRAMIDE HCL INJECTION 10 MG/2 ML VIAL IVPUSH PRN (14:57)
[2017-10-06] MEDS ORDERED: diazePAM 5 MG TABLET PO ONE (15:30)
[2017-10-06] MEDS ORDERED: SENNOSIDES 8.6MG TABLET (FP) PO PRN (19:20)
[2017-10-06] MEDS ORDERED: PT OWN MED DRAWER 7, Y5N ONE (19:31)
[2017-10-06] MEDS ORDERED: ASPIRIN 325 MG TABLET PO SCH (22:00)
[2017-10-06] MEDS ORDERED: CHLORHEXIDINE GLUCONATE 4% CLEANSER FOR DECOLONIZATION TP SCH (22:00)
[2017-10-06] MEDS ORDERED: MUPIROCIN 2% TOPICAL OINTMENT FOR DECOLONIZATION NS SCH (22:00)
[2017-10-06] MEDS: AMITRIPTYLINE HCL 75 MG TABLET PO SCH (22:20)
[2017-10-06] MEDS: ZOLPIDEM TARTRATE 5 MG TABLET PO PRN (23:57)
[2017-10-07] MEDS: CYCLOBENZAPRINE HCL 10 MG TABLET (FP) PO SCH ×4 (02:37→22:17)
[2017-10-07] MEDS: HYDROmorphone HCL 2 MG TABLET PO PRN (07:49)
--- NOTE | 2017-10-07 09:23 | PN ---
<Maico Lewis - Last Filed: 10/07/17 09:35> Physical Exam: SUBJECTIVE: OVN patient was in 7/10 pain in her back and in her R leg. Patient complaining of R leg spasms. States that she hasn't passed much gas and has not had any bowel movements. Denies fevers, chills, nausea, vomiting, diarrhea, chest pain, shortness of breath. OBJECTIVE: Vital Signs Period Temp Pulse Resp BP Sys/García Pulse Ox Last 24 Hr 98.9 F-100.9 F 88-99 18-21 119-141/56-78 96 GENERAL: A&Ox3, no acute distress EYES: PERRLA, EOMI LUNGS: CTA, no wheezing HEART: RRR no murmurs rubs or gallops ABDOMEN: obese, soft, nontender EXTREMITIES: 2+ pulses, warm, well-perfused, no edema. NEUROLOGICAL: CN II-XII intact, reflexes 2/6 bilaterally, motor strength restricted due to pain, sensation intact PSYCH: Normal mood, normal affect. SKIN: Warm, dry, normal turgor, no rashes or lesions noted, dressing over incision on back is more wet, non-purulent, mild serosanguinous drainage noted at the inferior aspect, dressing changed. Active Medications Generic Name Dose Route Start Last Admin Trade Name Ish PRN Reason Stop Dose Admin Acetaminophen 650 mg 10/06/17 22:00 10/06/17 22:14 Tylenol - PO 650 mg QID [facility] Administration Amitriptyline HCl 150 mg 10/06/17 22:00 10/06/17 22:20 Elavil - PO 150 mg HS [facility] Administration Aspirin 325 mg 10/06/17 22:00 10/06/17 22:15 Asa - PO 325 mg BID [facility] Administration Cyclobenzaprine HCl 5 mg 10/06/17 20:30 10/07/17 02:37 Flexeril - PO 5 mg Q6H [facility] Administration Diphenhydramine HCl 50 mg 10/06/17 19:20 Benadryl Injection - IVPUSH Q6H PRN FOR ITCHING Docusate Sodium 100 mg 10/06/17 22:00 10/06/17 22:16 Colace - PO 100 mg BID [facility] Administration Fluticasone Propionate 2 spray 10/07/17 10:00 Flonase - NS DAILY [facility] Hydromorphone HCl 1 mg 10/06/17 11:55 10/07/17 07:49 Dilaudid - PO 10/07/17 11:54 1 mg Q4H PRN Administration PAIN LEVEL 6-10 Non-Formulary Medication 1 each 10/07/17 10:00 Patient's Own Med PO DAILY [facility] Ondansetron HCl 8 mg 10/06/17 11:56 Zofran Injection IVPUSH Q8H PRN NAUSEA Ranitidine HCl 150 mg 10/06/17 22:00 10/06/17 22:18 Zantac - PO 150 mg BID [facility] Administration Senna 2 tab 10/06/17 19:20 Senna - PO HS PRN CONSTIPATION Zolpidem Tartrate 10 mg 10/06/17 19:20 10/06/17 23:57 Ambien - PO 10 mg HS PRN Administration INSOMNIA ASSESSMENT/PLAN: 37 year old female with a past medical history of anxiety, depression, disc herniation, chronic back pain is s/p L4-S1 laminectomy and decompression w/ fusion performed by Dr. Damaso Kathleen #Back Pain: POD4 L4-S1 laminectomy/decompression w/ fusion, more pain today -continue dilaudid, flexeril for pain -Dr. Kathleen evaluation appreciated -patient making urine -no bowel movement yetg -zofran for nausea -continue amitriptyline -soft diet tolerated #Insomnia: controlled -patient is on ambien 10, continue HS PRN #Anxiety: -continue diazepam Q8 as needed -GERD: -continue ranitidine 150 QD #Prophylaxis -SCDs, no heparin on this patient #FEN: -no standing fluids -replete lytes in Am -Clear liquid diet for now #Disposition: -continue to monitor on med-surg Visit type - Emergency Visit Emergency Visit: No - New Patient This patient is new to me today: No - Critical Care Critical Care patient: No <Larissa Kwok - Last Filed: 10/07/17 19:01> Physical Exam: Patient feels better with no acute distress, no nausea or vomiting. Agree with the resident's plan. Vital Signs Temperature 98.1 F 10/07/17 15:25 Pulse Rate 98 H 10/07/17 15:25 Respiratory Rate 20 10/07/17 15:25 Blood Pressure 108/57 10/07/17 15:25 O2 Sat by Pulse Oximetry (%) 96 10/07/17 09:00 CBCD WBC 11.9 K/mm3 (4.0-10.0) H 10/06/17 05:00 RBC 3.41 M/mm3 (3.60-5.2) L 10/06/17 05:00 Hgb 9.4 GM/dL (10.7-15.3) L 10/06/17 05:00 Hct 28.7 % (32.4-45.2) L 10/06/17 05:00 MCV 84.1 fl (80-96) 10/06/17 05:00 MCHC 32.9 g/dl (32.0-36.0) 10/06/17 05:00 RDW 13.4 % (11.6-15.6) 10/06/17 05:00 Plt Count 188 K/MM3 (134-434) 10/06/17 05:00 MPV 9.1 fl (7.5-11.1) 10/06/17 05:00 CMP Sodium 138 mmol/L (136-145) 10/06/17 05:00 Potassium 3.5 mmol/L (3.5-5.1) 10/06/17 05:00 Chloride 103 mmol/L (98-107) 10/06/17 05:00 Carbon Dioxide 21 mmol/L (21-32) 10/06/17 05:00 Anion Gap 14 (8-16) 10/06/17 05:00 BUN 5 mg/dL (7-18) L 10/06/17 05:00 Creatinine 0.7 mg/dL (0.55-1.02) 10/06/17 05:00 Creat Clearance w eGFR > 60 (>60) 10/05/17 05:15 Random Glucose 118 mg/dL (74-106) H 10/06/17 05:00 Calcium 7.6 mg/dL (8.5-10.1) L 10/06/17 05:00 Total Bilirubin 0.5 mg/dL (0.2-1.0) 10/05/17 05:15 AST 45 U/L (15-37) H 10/05/17 05:15 ALT 21 U/L (12-78) 10/05/17 05:15 Alkaline Phosphatase 47 U/L (45-117) 10/05/17 05:15 Total Protein 5.2 g/dl (6.4-8.2) L 10/05/17 05:15 Albumin 2.5 g/dl (3.4-5.0) L 10/05/17 05:15 Current Medications Generic Name Dose Route Start Last Admin Trade Name Freq PRN Reason Stop Dose Admin Acetaminophen 650 mg 10/06/17 22:00 10/07/17 15:26 Tylenol - PO 650 mg QID [facility]I Administration Amitriptyline HCl 150 mg 10/06/17 22:00 10/06/17 22:20 Elavil - PO 150 mg HS [facility] Administration Cyclobenzaprine HCl 5 mg 10/06/17 20:30 10/07/17 15:26 Flexeril - PO 5 mg Q6H [facility] Administration Diphenhydramine HCl 50 mg 10/06/17 19:20 Benadryl Injection - IVPUSH Q6H PRN FOR ITCHING Docusate Sodium 100 mg 10/06/17 22:00 10/07/17 10:04 Colace - PO 100 mg BID [facility] Administration Fluticasone Propionate 2 spray 10/07/17 10:00 10/07/17 14:46 Flonase - NS Not Given DAILY [facility] Gabapentin 200 mg 10/07/17 14:00 10/07/17 15:27 Neurontin - PO 200 mg TID [facility] Administration Non-Formulary Medication 1 each 10/07/17 10:00 10/07/17 10:07 Patient's Own Med PO 1 each DAILY [facility] Administration Ondansetron HCl 8 mg 10/06/17 11:56 Zofran Injection IVPUSH Q8H PRN NAUSEA Ranitidine HCl 150 mg 10/06/17 22:00 10/07/17 10:03 Zantac - PO 150 mg BID [facility] Administration Senna 2 tab 10/06/17 19:20 Senna - PO HS PRN CONSTIPATION Zolpidem Tartrate 10 mg 10/06/17 19:20 10/06/17 23:57 Ambien - PO 10 mg HS PRN Administration INSOMNIA Initial Vital Signs Temp Pulse Resp BP 98.1 F 100 H 18 130/81 10/03/17 12:26 10/03/17 12:26 10/03/17 12:26 10/03/17 12:26
[2017-10-07] MEDS ORDERED: KETOROLAC TROMETHAMINE 30 MG/1 ML VIAL IVPUSH ONE (09:26)
[2017-10-07] MEDS ORDERED: PT OWN MED DRAWER 7, Y5N ONE (10:00)
[2017-10-07] MEDS: RANITIDINE HCL 150 MG TABLET (FP) PO SCH ×2 (10:03→22:19)
[2017-10-07] MEDS: DOCUSATE SODIUM 100 MG CAPSULE (FP) PO SCH ×2 (10:04→22:18)
[2017-10-07] MEDS: ACETAMINOPHEN 325 MG TABLET (FP) PO SCH ×4 (10:06→22:16)
--- NOTE | 2017-10-07 10:34 | SURG ---
Surgery Payroll Bookkeeper Note Payroll Bookkeeper: Abeba Rosas PA-C Date of Service: 10/03/17 Diagnosis: radiculopathy, spianl instabiltiy Procedure: posterior lamienctomy/decompression of L4-S1 with interbody fusion I was present for the entirety of the operative procedure. For further detail, please refer to operative report. Visit type - Case Type Case Type: Scheduled Admission - Emergency Emergency Visit: No - New patient This patient is new to me today: Yes Date on this admission: 10/07/17
--- NOTE | 2017-10-07 11:52 | PN ---
Progress Note (short form) - Note Progress Note: Surgery POD #4 L3-S1 decompression and fusion Pt seen and examined at bedside. She c/o having lots of pain and spasm over surgical site and radiating down both legs R>L when she moves. She states that she felt chills again this morning but no subjective fevers. She is complaining of H/A but no visual disturbances. She is Tolerating a regular diet with minimal flatus, and BM yet. She denies any CP, SOB, N/V. She has not been OOB 2 /2 pain. Vital Signs Temp 99 F 0318 06:00 Pulse 90 10/07/17 06:00 Resp 20 10/07/17 06:00 BP 135/78 10/07/17 06:00 Pulse Ox 96 10/06/17 21:00 Intake & Output 18 18 10/07/17 11:59 23:59 11:59 Intake Total 320 535 Output Total 2500 Balance 320 -1965 Intake: IV 20 35 20 R Hand 10/03 15 22 LFA 10/06/17 20 20 Oral 300 500 Output: Urine 2500 Romero 2500 Other: Voiding Method Toilet Toilet Toilet # Unmeasured Voids Void 2 2 1 Bowel Movement No CBC, BMP 03/18 05:00 10/06/17 05:00 PE: A&Ox3, anxious Unlabored resp on RA Incision dressing saturated along length of incision with serosanginous discharge. Steri strips removed. Incision c/d/i with some oozing at inferior apex but no signs of active bleeding or d/c. pressure applied to margins along incision with no d/c expressed and no signs of collection or fluctuance. surrounding tissue intact and no evidence of erythema or edema. Redressed with pressure dressing. B/L LE compartments soft and supple, sensation to light touch intact throughout and 2/5 dorsi/plantar flexion 2/2 pain with +2 pedal pulses. Problem List - Problems (1) Herniated intervertebral disc Assessment/Plan: POD#4 multilevel lumbar decompression and fusion with some post op pain and incisional drainage likely 2/2 lack of movement and laying on back for long periods of time. Plan: 1) pain regimen discussed with Dr Cool, will add neuontin and one dose of Toradol 2) D/c Aspirin as she is having lots of oozing 3) OOB with PT and up to chair for meals 4) DVT phophylaxis with ambulation and scds 5) d/c planning for home evaluation and plan discussed with Dr Damaso Cool Code(s): FSU0385 -
[2017-10-07] MEDS: FLUTICASONE PROP 0.05% 16 GM NASAL SPRAY NS SCH (14:46)
[2017-10-07] MEDS: GABAPENTIN 100 MG CAPSULE (FP) PO SCH ×2 (15:27→22:18)
[2017-10-07] MEDS ORDERED: traMADol HCL 50 MG TABLET PO ONE (19:30)
[2017-10-07] MEDS: AMITRIPTYLINE HCL 75 MG TABLET PO SCH (22:18)
[2017-10-07] MEDS: ZOLPIDEM TARTRATE 5 MG TABLET PO PRN (22:19)
[2017-10-08] MEDS ORDERED: KETOROLAC TROMETHAMINE 10 MG TABLET PO SCH
[2017-10-08] MEDS: CYCLOBENZAPRINE HCL 10 MG TABLET (FP) PO SCH ×4 (02:18→20:33)
[2017-10-08] MEDS: GABAPENTIN 100 MG CAPSULE (FP) PO SCH ×3 (05:41→22:04)
[2017-10-08] MEDS ORDERED: KETOROLAC TROMETHAMINE 30 MG/1 ML VIAL IVPUSH ONE (09:20)
[2017-10-08] MEDS: ACETAMINOPHEN 325 MG TABLET (FP) PO SCH ×4 (09:43→22:04)
[2017-10-08] MEDS: RANITIDINE HCL 150 MG TABLET (FP) PO SCH ×2 (09:44→22:04)
[2017-10-08] MEDS: DOCUSATE SODIUM 100 MG CAPSULE (FP) PO SCH ×2 (09:44→22:12)
[2017-10-08] MEDS: FLUTICASONE PROP 0.05% 16 GM NASAL SPRAY NS SCH (09:47)
--- NOTE | 2017-10-08 10:21 | PN ---
Progress Note (short form) - Note Progress Note: Patient is feeling better, c/o having right lower extremity pain upon ambulation. Tolerating diet well. Full diet today , with no nausea or vomiting. Vital Signs Temperature 99.3 F 10/08/17 06:00 Pulse Rate 88 10/08/17 06:00 Respiratory Rate 20 10/08/17 06:00 Blood Pressure 125/72 10/08/17 06:00 O2 Sat by Pulse Oximetry (%) 96 10/07/17 21:00 PE: per ortho Extremities: no calf tenderness, SCds, and teds stockings, positive for pulses CBCD WBC 11.9 K/mm3 (4.0-10.0) H 10/06/17 05:00 RBC 3.41 M/mm3 (3.60-5.2) L 10/06/17 05:00 Hgb 9.4 GM/dL (10.7-15.3) L 10/06/17 05:00 Hct 28.7 % (32.4-45.2) L 10/06/17 05:00 MCV 84.1 fl (80-96) 10/06/17 05:00 MCHC 32.9 g/dl (32.0-36.0) 10/06/17 05:00 RDW 13.4 % (11.6-15.6) 10/06/17 05:00 Plt Count 188 K/MM3 (134-434) 10/06/17 05:00 MPV 9.1 fl (7.5-11.1) 10/06/17 05:00 CMP Sodium 138 mmol/L (136-145) 10/06/17 05:00 Potassium 3.5 mmol/L (3.5-5.1) 10/06/17 05:00 Chloride 103 mmol/L (98-107) 10/06/17 05:00 Carbon Dioxide 21 mmol/L (21-32) 10/06/17 05:00 Anion Gap 14 (8-16) 10/06/17 05:00 BUN 5 mg/dL (7-18) L 10/06/17 05:00 Creatinine 0.7 mg/dL (0.55-1.02) 10/06/17 05:00 Creat Clearance w eGFR > 60 (>60) 10/05/17 05:15 Random Glucose 118 mg/dL (74-106) H 10/06/17 05:00 Calcium 7.6 mg/dL (8.5-10.1) L 10/06/17 05:00 Total Bilirubin 0.5 mg/dL (0.2-1.0) 10/05/17 05:15 AST 45 U/L (15-37) H 10/05/17 05:15 ALT 21 U/L (12-78) 10/05/17 05:15 Alkaline Phosphatase 47 U/L (45-117) 10/05/17 05:15 Total Protein 5.2 g/dl (6.4-8.2) L 10/05/17 05:15 Albumin 2.5 g/dl (3.4-5.0) L 10/05/17 05:15 Current Medications Generic Name Dose Route Start Last Admin Trade Name Freq PRN Reason Stop Dose Admin Acetaminophen 650 mg 10/06/17 22:00 10/08/17 09:43 Tylenol - PO 650 mg QID KODI Administration Amitriptyline HCl 150 mg 10/06/17 22:00 10/07/17 22:18 Elavil - PO 150 mg HS KODI Administration Cyclobenzaprine HCl 5 mg 10/06/17 20:30 10/08/17 08:45 Flexeril - PO 5 mg Q6H KODI Administration Diphenhydramine HCl 50 mg 10/06/17 19:20 Benadryl Injection - IVPUSH Q6H PRN FOR ITCHING Docusate Sodium 100 mg 10/06/17 22:00 10/08/17 09:44 Colace - PO 100 mg BID KODI Administration Fluticasone Propionate 2 spray 10/07/17 10:00 10/08/17 09:47 Flonase - NS 4 sprays DAILY KODI Administration Gabapentin 200 mg 10/07/17 14:00 10/08/17 05:41 Neurontin - PO 200 mg TID KODI Administration Non-Formulary Medication 1 each 10/07/17 10:00 10/07/17 10:07 Patient's Own Med PO 1 each DAILY KODI Administration Ondansetron HCl 8 mg 10/06/17 11:56 Zofran Injection IVPUSH Q8H PRN NAUSEA Ranitidine HCl 150 mg 10/06/17 22:00 03/03/18 09:44 Zantac - PO 150 mg BID KODI Administration Senna 2 tab 10/06/17 19:20 Senna - PO HS PRN CONSTIPATION Tramadol HCl 50 mg 10/08/17 09:06 Ultram - PO Q6H PRN PAIN LEVEL 1-5 Zolpidem Tartrate 10 mg 10/06/17 19:20 10/07/17 22:19 Ambien - PO 10 mg HS PRN Administration INSOMNIA Home Medications Medication Instructions Recorded Amitriptyline HCl 150 mg PO HS 08/11/17 Desogestrel-Ethinyl Estradiol 1 each PO DAILY 08/11/17 [Apri] Fluticasone Prop 0.05% Nasal 1 - 2 spray NS DAILY 08/11/17 [Flonase -] Hydrocodone/Acetaminophen 1 each PO PRN PRN 08/11/17 [Hydrocodone-Acetamin 5-300 mg] Ranitidine HCl 150 mg PO BID 08/11/17 Zolpidem Tartrate [Ambien] 10 mg PO HS 08/11/17 Cyclobenzaprine HCl [Flexeril 10 10 tab PO DAILY 10/04/17 mg] ASSESSMENT/PLAN: 37 year old female with a past medical history of anxiety, depression, disc herniation, chronic back pain is s/p L4-S1 laminectomy and decompression w/ fusion performed by Dr. Damaso Kathleen #Back Pain: POD5 L4-S1 laminectomy/decompression w/ fusion, pain on ambulation of right lower extremity, shooting pain like ordered Ultram as per Ortho, further managment per ortho. Further pain management per Ortho. # Constipation: increased the dose of colace to tid 100mg and Senna at hs #Insomnia: on ambien 10, continue HS PRN #Anxiety: on diazepam Q8 as needed #GERD: continue ranitidine 150 QD Prophylaxis: SCDs, no heparin on this patient Visit type - Emergency Visit Emergency Visit: Yes ED Registration Date: 10/03/17 Care time: The patient presented to the Emergency Department on the above date and was hospitalized for further evaluation of their emergent condition. - New Patient This patient is new to me today: No - Critical Care Critical Care patient: No - Discharge Referral Referred to [facility] No
[2017-10-08] MEDS: traMADol HCL 50 MG TABLET PO PRN ×2 (13:18→18:59)
[2017-10-08] MEDS: ETHINYL ESTRADIOL PO SCH (13:21)
[2017-10-08] MEDS: DESOGESTREL PO SCH (13:21)
[2017-10-08] MEDS ORDERED: PT OWN MED DRAWER 7, Y5N ONE ×3 (19:48→22:31)
[2017-10-08] MEDS: AMITRIPTYLINE HCL 75 MG TABLET PO SCH (22:05)
[2017-10-09] MEDS: CYCLOBENZAPRINE HCL 10 MG TABLET (FP) PO SCH ×4 (02:21→20:32)
[2017-10-09] MEDS: GABAPENTIN 100 MG CAPSULE (FP) PO SCH ×3 (06:09→21:41)
[2017-10-09] MEDS: DOCUSATE SODIUM 100 MG CAPSULE (FP) PO SCH ×3 (06:09→21:41)
[2017-10-09] MEDS ORDERED: KETOROLAC TROMETHAMINE 30 MG/1 ML VIAL IVPUSH ONE (09:00)
[2017-10-09] MEDS: RANITIDINE HCL 150 MG TABLET (FP) PO SCH ×2 (09:16→21:41)
[2017-10-09] MEDS: ACETAMINOPHEN 325 MG TABLET (FP) PO SCH ×4 (09:16→21:41)
[2017-10-09] MEDS: FLUTICASONE PROP 0.05% 16 GM NASAL SPRAY NS SCH (09:18)
--- NOTE | 2017-10-09 09:49 | PN ---
Physical Exam: SUBJECTIVE: No acute overnight events. Patient is in 9/10 pain with sporadic L and R leg spasms. She states that the toradol helps but the tramadaol does not. OBJECTIVE: Vital Signs Period Temp Pulse Resp BP Sys/García Pulse Ox Last 24 Hr 97.9 F-98.6 F 87-93 18-22 120-138/71-74 96-96 GENERAL: A&Ox3, no acute distress EYES: PERRLA, EOMI LUNGS: CTA, no wheezing HEART: RRR no murmurs rubs or gallops ABDOMEN: obese, soft, nontender EXTREMITIES: 2+ pulses, warm, well-perfused, no edema. NEUROLOGICAL: CN II-XII intact, reflexes 2/6 bilaterally, motor strength 5/5 b/ l but restricted due to pain, sensation intact PSYCH: Normal mood, normal affect. SKIN: Warm, dry, normal turgor, no rashes or lesions noted, Dressing not observed due to inability to turn over in bed Active Medications Generic Name Dose Route Start Last Admin Trade Name Freq PRN Reason Stop Dose Admin Acetaminophen 650 mg 10/06/17 22:00 10/09/17 09:16 Tylenol - PO 650 mg QID KODI Administration Amitriptyline HCl 150 mg 10/06/17 22:00 10/08/17 22:05 Elavil - PO 150 mg HS KODI Administration Cyclobenzaprine HCl 5 mg 10/06/17 20:30 10/09/17 09:16 Flexeril - PO 5 mg Q6H KODI Administration Diphenhydramine HCl 50 mg 10/06/17 19:20 Benadryl Injection - IVPUSH Q6H PRN FOR ITCHING Docusate Sodium 100 mg 10/08/17 22:00 10/09/17 06:09 Colace - PO 100 mg TID KODI Administration Fluticasone Propionate 2 spray 10/07/17 10:00 10/09/17 09:18 Flonase - NS 4 sprays DAILY KODI Administration Gabapentin 200 mg 10/07/17 14:00 10/09/17 06:09 Neurontin - PO 200 mg TID KODI Administration Non-Formulary Medication 1 each 10/07/17 10:00 10/09/17 09:19 Patient's Own Med PO Not Given DAILY KODI Ondansetron HCl 8 mg 10/06/17 11:56 Zofran Injection IVPUSH Q8H PRN NAUSEA Ranitidine HCl 150 mg 10/06/17 22:00 10/09/17 09:16 Zantac - PO 150 mg BID KODI Administration Senna 2 tab 10/06/17 19:20 Senna - PO HS PRN CONSTIPATION Tramadol HCl 50 mg 10/08/17 09:06 10/08/17 18:59 Ultram - PO 50 mg Q6H PRN Administration PAIN LEVEL 1-5 Zolpidem Tartrate 10 mg 10/06/17 19:20 10/07/17 22:19 Ambien - PO 10 mg HS PRN Administration INSOMNIA ASSESSMENT/PLAN: 37 year old female with a past medical history of anxiety, depression, disc herniation, chronic back pain is s/p L4-S1 laminectomy and decompression w/ fusion performed by Dr. Damaso Kathleen #Back Pain: POD6 L4-S1 laminectomy/decompression w/ fusion, more pain today -continue flexeril, ultram, toradol for pain -Dr. Kathleen evaluation appreciated -patient making urine -no bowel movement yet but patient is producing gas -zofran for nausea -continue amitriptyline -soft diet tolerated #Insomnia: controlled -patient is on ambien 10, continue HS PRN #Anxiety: -continue diazepam Q8 as needed #GERD: -continue ranitidine 150 QD #Prophylaxis -SCDs, no heparin on this patient #FEN: -no standing fluids -replete lytes in Am -Soft diet #Disposition: -continue to monitor on med-surg Visit type - Emergency Visit Emergency Visit: No - New Patient This patient is new to me today: No - Critical Care Critical Care patient: No
[2017-10-09] MEDS: AMITRIPTYLINE HCL 75 MG TABLET PO SCH (21:42)
[2017-10-10] MEDS: CYCLOBENZAPRINE HCL 10 MG TABLET (FP) PO SCH ×5 (02:41→22:56)
[2017-10-10] MEDS: DOCUSATE SODIUM 100 MG CAPSULE (FP) PO SCH ×3 (05:29→22:56)
[2017-10-10] MEDS: GABAPENTIN 100 MG CAPSULE (FP) PO SCH ×3 (05:29→22:57)
[2017-10-10] MEDS: RANITIDINE HCL 150 MG TABLET (FP) PO SCH ×2 (09:36→22:57)
[2017-10-10] MEDS: FLUTICASONE PROP 0.05% 16 GM NASAL SPRAY NS SCH (09:36)
[2017-10-10] MEDS: ACETAMINOPHEN 325 MG TABLET (FP) PO SCH ×4 (09:37→22:55)
[2017-10-10] MEDS: traMADol HCL 50 MG TABLET PO PRN ×2 (09:37→22:59)
[2017-10-10] MEDS ORDERED: diazePAM 2 MG TABLET PO ONE ×2 (10:30→12:00)
--- NOTE | 2017-10-10 11:47 | PN ---
Teaching Attending Note Name of Resident: Maico Lewis ATTENDING PHYSICIAN STATEMENT I saw and evaluated the patient. I reviewed the resident's note and discussed the case with the resident. I agree with the resident's findings and plan as documented. SUBJECTIVE: OBJECTIVE: Vital Signs Temperature 98.3 F 10/10/17 06:00 Pulse Rate 95 H 10/10/17 06:00 Respiratory Rate 20 10/10/17 06:00 Blood Pressure 110/62 10/10/17 06:00 O2 Sat by Pulse Oximetry (%) 96 10/09/17 09:00 CBCD WBC 11.9 K/mm3 (4.0-10.0) H 10/06/17 05:00 RBC 3.41 M/mm3 (3.60-5.2) L 10/06/17 05:00 Hgb 9.4 GM/dL (10.7-15.3) L 10/06/17 05:00 Hct 28.7 % (32.4-45.2) L 10/06/17 05:00 MCV 84.1 fl (80-96) 10/06/17 05:00 MCHC 32.9 g/dl (32.0-36.0) 10/06/17 05:00 RDW 13.4 % (11.6-15.6) 10/06/17 05:00 Plt Count 188 K/MM3 (134-434) 10/06/17 05:00 MPV 9.1 fl (7.5-11.1) 10/06/17 05:00 CMP Sodium 138 mmol/L (136-145) 10/06/17 05:00 Potassium 3.5 mmol/L (3.5-5.1) 10/06/17 05:00 Chloride 103 mmol/L (98-107) 10/06/17 05:00 Carbon Dioxide 21 mmol/L (21-32) 10/06/17 05:00 Anion Gap 14 (8-16) 10/06/17 05:00 BUN 5 mg/dL (7-18) L 10/06/17 05:00 Creatinine 0.7 mg/dL (0.55-1.02) 10/06/17 05:00 Creat Clearance w eGFR > 60 (>60) 10/05/17 05:15 Random Glucose 118 mg/dL (74-106) H 10/06/17 05:00 Calcium 7.6 mg/dL (8.5-10.1) L 10/06/17 05:00 Total Bilirubin 0.5 mg/dL (0.2-1.0) 10/05/17 05:15 AST 45 U/L (15-37) H 10/05/17 05:15 ALT 21 U/L (12-78) 10/05/17 05:15 Alkaline Phosphatase 47 U/L (45-117) 10/05/17 05:15 Total Protein 5.2 g/dl (6.4-8.2) L 10/05/17 05:15 Albumin 2.5 g/dl (3.4-5.0) L 10/05/17 05:15 Current Medications Generic Name Dose Route Start Last Admin Trade Name Freq PRN Reason Stop Dose Admin Acetaminophen 650 mg 10/06/17 22:00 10/10/17 09:37 Tylenol - PO 650 mg QID KODI Administration Amitriptyline HCl 150 mg 10/06/17 22:00 10/09/17 21:42 Elavil - PO 150 mg HS KODI Administration Cyclobenzaprine HCl 5 mg 10/06/17 20:30 10/10/17 09:41 Flexeril - PO Not Given Q6H KODI Diphenhydramine HCl 50 mg 10/06/17 19:20 Benadryl Injection - IVPUSH Q6H PRN FOR ITCHING Docusate Sodium 100 mg 10/08/17 22:00 10/10/17 05:29 Colace - PO 100 mg TID KODI Administration Fluticasone Propionate 2 spray 10/07/17 10:00 10/10/17 09:36 Flonase - NS 2 sprays DAILY KODI Administration Gabapentin 200 mg 10/07/17 14:00 10/10/17 05:29 Neurontin - PO 200 mg TID KODI Administration Non-Formulary Medication 1 each 10/07/17 10:00 10/10/17 11:33 Patient's Own Med PO Not Given DAILY KODI Ondansetron HCl 8 mg 10/06/17 11:56 Zofran Injection IVPUSH Q8H PRN NAUSEA Polyethylene Glycol 17 gm 10/10/17 10:00 Miralax (For Daily Use) - PO BID KODI Ranitidine HCl 150 mg 10/06/17 22:00 10/10/17 09:36 Zantac - PO 150 mg BID KODI Administration Senna 2 tab 10/06/17 19:20 Senna - PO HS PRN CONSTIPATION Tramadol HCl 50 mg 10/08/17 09:06 10/10/17 09:37 Ultram - PO 50 mg Q6H PRN Administration PAIN LEVEL 1-5 Zolpidem Tartrate 10 mg 10/06/17 19:20 10/07/17 22:19 Ambien - PO 10 mg HS PRN Administration INSOMNIA Home Medications Medication Instructions Recorded Amitriptyline HCl 150 mg PO HS 08/11/17 Desogestrel-Ethinyl Estradiol 1 each PO DAILY 08/11/17 [Apri 28 Day Tablet] Fluticasone Prop 0.05% Nasal 1 - 2 spray NS DAILY 08/11/17 [Flonase -] Hydrocodone/Acetaminophen 1 each PO PRN PRN 08/11/17 [Hydrocodone-Acetamin 5-300 mg] Ranitidine HCl 150 mg PO BID 08/11/17 Zolpidem Tartrate [Ambien] 10 mg PO HS 08/11/17 Cyclobenzaprine HCl [Flexeril -] 5 mg PO Q6H #90 tablet 10/10/17 Docusate Sodium [Colace -] 100 mg PO TID #90 capsule 10/10/17 Gabapentin [Neurontin -] 200 mg PO TID #90 capsule 10/10/17 Polyethylene Glycol 3350 [Miralax 17 gm PO BID #1 bottle 10/10/17 (For Daily Use) -] Sennosides [Senna -] 2 tab PO HS PRN #30 tablet 10/10/17 ASSESSMENT AND PLAN:
[2017-10-10] MEDS: POLYETHYLENE GLYCOL 3350 119 GM BTL PO SCH ×2 (12:18→22:58)
--- NOTE | 2017-10-10 12:57 | DS ---
Physical Exam: SUBJECTIVE: Patient states that she is still in pain and has some trouble ambulating. She is tolerating food, passing gas, but has not yet had a solid bowel movement. OBJECTIVE: Vital Signs Period Temp Pulse Resp BP Sys/García Pulse Ox Last 24 Hr 97.8 F-98.6 F 79-100 16-20 110-129/62-79 PHYSICAL EXAM GENERAL: A&Ox3, no acute distress EYES: PERRLA, EOMI LUNGS: CTA, no wheezing HEART: RRR no murmurs rubs or gallops ABDOMEN: obese, soft, nontender EXTREMITIES: 2+ pulses, warm, well-perfused, no edema. NEUROLOGICAL: CN II-XII intact, reflexes 2/6 bilaterally, motor strength 5/5 b/ l but restricted due to pain, sensation intact PSYCH: Normal mood, normal affect. SKIN: Warm, dry, normal turgor, no rashes or lesions noted, Dressing was changed and is draining serosanguinous fluid Home Medication List Medication Instructions Recorded Confirmed Type Amitriptyline HCl 150 mg PO HS 08/11/17 10/03/17 History Desogestrel-Ethinyl Estradiol 1 each PO DAILY 08/11/17 10/03/17 History [Apri 28 Day Tablet] Fluticasone Prop 0.05% Nasal 1 - 2 spray NS DAILY 08/11/17 10/03/17 History [Flonase -] Hydrocodone/Acetaminophen 1 each PO PRN PRN 08/11/17 10/03/17 History [Hydrocodone-Acetamin 5-300 mg] Ranitidine HCl 150 mg PO BID 08/11/17 10/03/17 History Zolpidem Tartrate [Ambien] 10 mg PO HS 08/11/17 10/03/17 History HOSPITAL COURSE: Date of Admission:10/03/17 37 year old female with a past medical history of anxiety, depression, disc herniation admitted status post posterior laminectomy/decompression of L4-S1 with interbody fusion after 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 Post-op, patient's pain was difficult to control and she as not initially making urine or passing gas, she was also having some muscular spasms. She was unable to take narcotics because she complained of pruritis whenever on opioid medications. Her pain was controlled on tramadol and toradol. She had her JANINE drain removed and the wound was kept covered and changed daily. Patient was encouraged to ambulate, which was difficult for her to do. On the day of discharge, patient was given a dose of valium to help with her muscle spsms and pain. She was discharged to a rehabilitation facility with instructions to see Dr. Damaso Kathleen this week. Date of Discharge: 10/10/17 Minutes to complete discharge: 35 <Maico Lewis - Last Filed: 10/10/17 13:48> Physical Exam: Patient seen and examined patient is feeling better, with no acute distress, pain is better. Patient will be discharged to rehab. Agree with the resident's plan. Vital Signs Temperature 97.4 F L 10/10/17 15:36 Pulse Rate 96 H 10/10/17 15:36 Respiratory Rate 18 10/10/17 15:36 Blood Pressure 122/79 10/10/17 15:36 O2 Sat by Pulse Oximetry (%) 96 10/10/17 09:00 CBCD WBC 11.9 K/mm3 (4.0-10.0) H 10/06/17 05:00 RBC 3.41 M/mm3 (3.60-5.2) L 10/06/17 05:00 Hgb 9.4 GM/dL (10.7-15.3) L 10/06/17 05:00 Hct 28.7 % (32.4-45.2) L 10/06/17 05:00 MCV 84.1 fl (80-96) 10/06/17 05:00 MCHC 32.9 g/dl (32.0-36.0) 10/06/17 05:00 RDW 13.4 % (11.6-15.6) 10/06/17 05:00 Plt Count 188 K/MM3 (134-434) 10/06/17 05:00 MPV 9.1 fl (7.5-11.1) 10/06/17 05:00 CMP Sodium 138 mmol/L (136-145) 10/06/17 05:00 Potassium 3.5 mmol/L (3.5-5.1) 10/06/17 05:00 Chloride 103 mmol/L (98-107) 10/06/17 05:00 Carbon Dioxide 21 mmol/L (21-32) 10/06/17 05:00 Anion Gap 14 (8-16) 10/06/17 05:00 BUN 5 mg/dL (7-18) L 10/06/17 05:00 Creatinine 0.7 mg/dL (0.55-1.02) 10/06/17 05:00 Creat Clearance w eGFR > 60 (>60) 10/05/17 05:15 Random Glucose 118 mg/dL (74-106) H 10/06/17 05:00 Calcium 7.6 mg/dL (8.5-10.1) L 10/06/17 05:00 Total Bilirubin 0.5 mg/dL (0.2-1.0) 10/05/17 05:15 AST 45 U/L (15-37) H 10/05/17 05:15 ALT 21 U/L (12-78) 10/05/17 05:15 Alkaline Phosphatase 47 U/L (45-117) 10/05/17 05:15 Total Protein 5.2 g/dl (6.4-8.2) L 10/05/17 05:15 Albumin 2.5 g/dl (3.4-5.0) L 10/05/17 05:15 Current Medications Generic Name Dose Route Start Last Admin Trade Name Freq PRN Reason Stop Dose Admin Acetaminophen 650 mg 10/06/17 22:00 10/10/17 13:59 Tylenol - PO Not Given QID KODI Amitriptyline HCl 150 mg 10/06/17 22:00 10/09/17 21:42 Elavil - PO 150 mg HS KODI Administration Cyclobenzaprine HCl 5 mg 10/06/17 20:30 10/10/17 14:00 Flexeril - PO Not Given Q6H KODI Diphenhydramine HCl 50 mg 10/06/17 19:20 Benadryl Injection - IVPUSH Q6H PRN FOR ITCHING Docusate Sodium 100 mg 10/08/17 22:00 10/10/17 13:59 Colace - PO 100 mg TID KODI Administration Fluticasone Propionate 2 spray 10/07/17 10:00 10/10/17 09:36 Flonase - NS 2 sprays DAILY KODI Administration Gabapentin 200 mg 10/07/17 14:00 10/10/17 13:59 Neurontin - PO 200 mg TID KODI Administration Non-Formulary Medication 1 each 10/07/17 10:00 10/10/17 11:33 Patient's Own Med PO Not Given DAILY KODI Ondansetron HCl 8 mg 10/06/17 11:56 Zofran Injection IVPUSH Q8H PRN NAUSEA Polyethylene Glycol 17 gm 10/10/17 10:00 10/10/17 12:18 Miralax (For Daily Use) - PO 17 gm BID KODI Administration Ranitidine HCl 150 mg 10/06/17 22:00 10/10/17 09:36 Zantac - PO 150 mg BID KODI Administration Senna 2 tab 10/06/17 19:20 Senna - PO HS PRN CONSTIPATION Tramadol HCl 50 mg 10/08/17 09:06 10/10/17 09:37 Ultram - PO 50 mg Q6H PRN Administration PAIN LEVEL 1-5 Zolpidem Tartrate 10 mg 10/06/17 19:20 10/07/17 22:19 Ambien - PO 10 mg HS PRN Administration INSOMNIA Home Medications Medication Instructions Recorded Amitriptyline HCl 150 mg PO HS 08/11/17 Desogestrel-Ethinyl Estradiol 1 each PO DAILY 08/11/17 [Apri 28 Day Tablet] Fluticasone Prop 0.05% Nasal 1 - 2 spray NS DAILY 08/11/17 [Flonase -] Hydrocodone/Acetaminophen 1 each PO PRN PRN 08/11/17 [Hydrocodone-Acetamin 5-300 mg] Ranitidine HCl 150 mg PO BID 08/11/17 Zolpidem Tartrate [Ambien] 10 mg PO HS 08/11/17 Cyclobenzaprine HCl [Flexeril -] 5 mg PO Q6H #90 tablet 10/10/17 Docusate Sodium [Colace -] 100 mg PO TID #90 capsule 10/10/17 Gabapentin [Neurontin -] 200 mg PO TID #90 capsule 10/10/17 Polyethylene Glycol 3350 [Miralax 17 gm PO BID #1 bottle 10/10/17 (For Daily Use) -] Sennosides [Senna -] 2 tab PO HS PRN #30 tablet 10/10/17 <Larissa Kwok - Last Filed: 10/10/17 16:52> Discharge Summary Reason For Visit: LUMBAGO WITH SCIATICA, LEFT SIDE Current Active Problems Anxiety (Acute) Chronic back pain (Acute) Depression (Acute) Herniated intervertebral disc (Acute) - Home Medications Comprehensive Discharge Medication List: Ambulatory Orders Amitriptyline HCl 150 mg PO HS 08/11/17 Desogestrel-Ethinyl Estradiol [Apri 28 Day Tablet] 1 each PO DAILY 08/11/17 Fluticasone Prop 0.05% Nasal [Flonase -] 1 - 2 spray NS DAILY 08/11/17 Hydrocodone/Acetaminophen [Hydrocodone-Acetamin 5-300 mg] 1 each PO PRN PRN 11/23 Ranitidine HCl 150 mg PO BID 08/11/17 Zolpidem Tartrate [Ambien] 10 mg PO HS 08/11/17 Cyclobenzaprine HCl [Flexeril -] 5 mg PO Q6H #90 tablet 10/10/17 Docusate Sodium [Colace -] 100 mg PO TID #90 capsule 10/10/17 Gabapentin [Neurontin -] 200 mg PO TID #90 capsule 10/10/17 Polyethylene Glycol 3350 [Miralax (For Daily Use) -] 17 gm PO BID #1 bottle 12/23 Sennosides [Senna -] 2 tab PO HS PRN #30 tablet 10/10/17 <Maico Lewis - Last Filed: 10/10/17 13:48> Current Active Problems Anxiety (Acute) Chronic back pain (Acute) Depression (Acute) Herniated intervertebral disc (Acute) - Home Medications Comprehensive Discharge Medication List: Ambulatory Orders Amitriptyline HCl 150 mg PO HS 08/11/17 Desogestrel-Ethinyl Estradiol [Apri 28 Day Tablet] 1 each PO DAILY 08/11/17 Fluticasone Prop 0.05% Nasal [Flonase -] 1 - 2 spray NS DAILY 08/11/17 Hydrocodone/Acetaminophen [Hydrocodone-Acetamin 5-300 mg] 1 each PO PRN PRN 11/23 Ranitidine HCl 150 mg PO BID 08/11/17 Zolpidem Tartrate [Ambien] 10 mg PO HS 08/11/17 Cyclobenzaprine HCl [Flexeril -] 5 mg PO Q6H #90 tablet 10/10/17 Docusate Sodium [Colace -] 100 mg PO TID #90 capsule 10/10/17 Gabapentin [Neurontin -] 200 mg PO TID #90 capsule 10/10/17 Polyethylene Glycol 3350 [Miralax (For Daily Use) -] 17 gm PO BID #1 bottle 12/23 Sennosides [Senna -] 2 tab PO HS PRN #30 tablet 10/10/17 <Larissa wKok - Last Filed: 10/10/17 16:52> Condition: Improved - Instructions Diet, Activity, Other Instructions: You were admitted to the hospital for posterior lamienctomy/decompression of L4- S1 with interbody fusion procedure with Dr. Cool. Medical Recommendations: Continue to wear TEDS stockings to prevent clots. Stop taking your control pills since high risk for clots till you become more mobile. Have your dressings changed daily For Pain: -Continue taking Flexeril 5mg by mouth every 6 hours as needed for pain -Continue taking gabapentin 200mg by mouth three times a day -Continue taking Vicodin 5-300 for pain as you were before For Constipation: -Continue taking Colace 100mg by mouth three times a day as needed for constipation -Continue taking Senna 2 tablets by mouth at night for constipation -Please take miralax 2x a day for constipation Referrals -Make an appointment with the surgeon Dr. Damaso Cool this week for followup ( [phone]) -Make an appointment with the primary care physician within 1 week of discharge. If you experience severe pain, fevers, chills, nausea, vomiting, diarrhea, please return to the emergency room immediately Referrals: Damaso Cool MD [Staff Physician] - 1 Week Disposition: HOME This patient is new to me today: No Emergency Visit: No Critical Care patient: No - Discharge Referral Referred to [facility] Med [facility] No <Maico Lewis - Last Filed: 10/10/17 13:48>
[2017-10-10] MEDS: diazePAM 5 MG TABLET PO PRN (18:27)
[2017-10-10] MEDS: ZOLPIDEM TARTRATE 5 MG TABLET PO PRN (22:57)
[2017-10-10] MEDS: AMITRIPTYLINE HCL 75 MG TABLET PO SCH (22:57)
[2017-10-11] MEDS: CYCLOBENZAPRINE HCL 10 MG TABLET (FP) PO SCH ×4 (03:22→21:43)
[2017-10-11] MEDS: DOCUSATE SODIUM 100 MG CAPSULE (FP) PO SCH ×3 (06:17→22:02)
[2017-10-11] MEDS: diazePAM 5 MG TABLET PO PRN ×2 (06:18→15:26)
[2017-10-11] MEDS: GABAPENTIN 100 MG CAPSULE (FP) PO SCH ×3 (06:18→22:02)
--- NOTE | 2017-10-11 06:49 | PN ---
Physical Exam: SUBJECTIVE: Patient seen and examined. No overnight events. OBJECTIVE: Vital Signs Period Temp Pulse Resp BP Sys/García Pulse Ox Last 24 Hr 97.4 F-98.4 F 90-98 16-20 121-147/59-79 96-96 GENERAL: A&Ox3, no acute distress EYES: PERRLA, EOMI LUNGS: CTA, no wheezing HEART: RRR no murmurs rubs or gallops ABDOMEN: obese, soft, nontender EXTREMITIES: 2+ pulses, warm, well-perfused, no edema. NEUROLOGICAL: CN II-XII intact, reflexes 2/6 bilaterally, motor strength 5/5 b/ l but restricted due to pain, sensation intact PSYCH: Normal mood, normal affect. SKIN: Warm, dry, normal turgor, no rashes or lesions noted, Dressing not observed due to inability to turn over in bed Active Medications Generic Name Dose Route Start Last Admin Trade Name Freq PRN Reason Stop Dose Admin Acetaminophen 650 mg 10/06/17 22:00 10/10/17 22:55 Tylenol - PO 650 mg QID KODI Administration Amitriptyline HCl 150 mg 10/06/17 22:00 10/10/17 22:57 Elavil - PO 150 mg HS KODI Administration Cyclobenzaprine HCl 5 mg 10/06/17 20:30 10/11/17 03:22 Flexeril - PO Not Given Q6H KODI Diazepam 5 mg 10/10/17 18:14 10/11/17 06:18 Valium - PO 5 mg Q8H PRN Administration MUSCLE SPASMS Diphenhydramine HCl 50 mg 10/06/17 19:20 Benadryl Injection - IVPUSH Q6H PRN FOR ITCHING Docusate Sodium 100 mg 10/08/17 22:00 10/11/17 06:17 Colace - PO 100 mg TID KODI Administration Fluticasone Propionate 2 spray 10/07/17 10:00 10/10/17 09:36 Flonase - NS 2 sprays DAILY KODI Administration Gabapentin 200 mg 10/07/17 14:00 10/11/17 06:18 Neurontin - PO 200 mg TID KODI Administration Non-Formulary Medication 1 each 10/07/17 10:00 10/10/17 11:33 Patient's Own Med PO Not Given DAILY KODI Ondansetron HCl 8 mg 10/06/17 11:56 Zofran Injection IVPUSH Q8H PRN NAUSEA Polyethylene Glycol 17 gm 10/10/17 10:00 10/10/17 22:58 Miralax (For Daily Use) - PO Not Given BID KODI Ranitidine HCl 150 mg 10/06/17 22:00 10/10/17 22:57 Zantac - PO 150 mg BID KODI Administration Senna 2 tab 10/06/17 19:20 Senna - PO HS PRN CONSTIPATION Tramadol HCl 50 mg 10/08/17 09:06 10/10/17 22:59 Ultram - PO 50 mg Q6H PRN Administration PAIN LEVEL 1-5 Zolpidem Tartrate 10 mg 10/06/17 19:20 10/10/17 22:57 Ambien - PO 10 mg HS PRN Administration INSOMNIA ASSESSMENT/PLAN: 37 year old female with a past medical history of anxiety, depression, disc herniation, chronic back pain is s/p L4-S1 laminectomy and decompression w/ fusion performed by Dr. Damaso Kathleen #Back Pain: POD8 L4-S1 laminectomy/decompression w/ fusion, more pain today -continue flexeril, ultram, toradol for pain -valium for spasms -Dr. Kathleen evaluation appreciated -patient making urine -no bowel movement yet but patient is producing gas -zofran for nausea -continue amitriptyline -soft diet tolerated #Insomnia: controlled -patient is on ambien 10, continue HS PRN #Anxiety: -continue diazepam Q8 as needed #GERD: -continue ranitidine 150 QD #Prophylaxis -SCDs, no heparin on this patient #FEN: -no standing fluids -replete lytes in Am -Soft diet #Disposition: -patient is discharged to SNF Visit type - Emergency Visit Emergency Visit: No - New Patient This patient is new to me today: No - Critical Care Critical Care patient: No
[2017-10-11] MEDS: ACETAMINOPHEN 325 MG TABLET (FP) PO SCH ×4 (10:29→22:02)
[2017-10-11] MEDS: POLYETHYLENE GLYCOL 3350 119 GM BTL PO SCH ×2 (10:29→22:02)
[2017-10-11] MEDS: RANITIDINE HCL 150 MG TABLET (FP) PO SCH ×2 (10:30→22:03)
[2017-10-11] MEDS: FLUTICASONE PROP 0.05% 16 GM NASAL SPRAY NS SCH (10:31)
[2017-10-11] MEDS ORDERED: BISACODYL 10 MG SUPP.RECT RC ONE (12:30)
[2017-10-11] MEDS: traMADol HCL 50 MG TABLET PO PRN ×2 (13:29→22:04)
[2017-10-11] MEDS: AMITRIPTYLINE HCL 75 MG TABLET PO SCH (22:02)
[2017-10-11] MEDS ORDERED: ZOLPIDEM TARTRATE 5 MG TABLET PO PRN (22:10)
[2017-10-12] MEDS: diazePAM 5 MG TABLET PO PRN ×3 (00:14→23:18)
[2017-10-12] MEDS: CYCLOBENZAPRINE HCL 10 MG TABLET (FP) PO SCH ×4 (02:40→23:21)
[2017-10-12] MEDS: traMADol HCL 50 MG TABLET PO PRN ×2 (04:34→16:48)
[2017-10-12] MEDS: GABAPENTIN 100 MG CAPSULE (FP) PO SCH ×3 (06:47→23:18)
[2017-10-12] MEDS: DOCUSATE SODIUM 100 MG CAPSULE (FP) PO SCH ×3 (06:47→23:19)
[2017-10-12] MEDS: FLUTICASONE PROP 0.05% 16 GM NASAL SPRAY NS SCH (10:04)
[2017-10-12] MEDS: POLYETHYLENE GLYCOL 3350 119 GM BTL PO SCH (10:05)
[2017-10-12] MEDS: ACETAMINOPHEN 325 MG TABLET (FP) PO SCH ×4 (10:05→23:19)
[2017-10-12] MEDS: RANITIDINE HCL 150 MG TABLET (FP) PO SCH ×2 (10:06→23:18)
--- NOTE | 2017-10-12 14:53 | PN ---
Physical Exam: SUBJECTIVE: No acute changes from yesterday. OBJECTIVE: Vital Signs Period Temp Pulse Resp BP Sys/García Pulse Ox Last 24 Hr 97.9 F-98.8 F 85-99 18-18 105-119/58-66 96 GENERAL: A&Ox3, no acute distress EYES: PERRLA, EOMI LUNGS: CTA, no wheezing HEART: RRR no murmurs rubs or gallops ABDOMEN: obese, soft, nontender EXTREMITIES: 2+ pulses, warm, well-perfused, no edema. NEUROLOGICAL: CN II-XII intact, reflexes 2/6 bilaterally, motor strength 5/5 b/ l but restricted due to pain, sensation intact PSYCH: Normal mood, normal affect. SKIN: Warm, dry, normal turgor, no rashes or lesions noted, Dressing clean and dry Active Medications Generic Name Dose Route Start Last Admin Trade Name Freq PRN Reason Stop Dose Admin Acetaminophen 650 mg 10/06/17 22:00 10/12/17 13:14 Tylenol - PO 650 mg QID KODI Administration Amitriptyline HCl 150 mg 10/06/17 22:00 10/11/17 22:02 Elavil - PO 150 mg HS KODI Administration Cyclobenzaprine HCl 5 mg 10/06/17 20:30 10/12/17 08:43 Flexeril - PO Not Given Q6H KODI Diazepam 5 mg 10/10/17 18:14 10/12/17 08:43 Valium - PO 5 mg Q8H PRN Administration MUSCLE SPASMS Diphenhydramine HCl 50 mg 10/06/17 19:20 Benadryl Injection - IVPUSH Q6H PRN FOR ITCHING Docusate Sodium 100 mg 10/08/17 22:00 10/12/17 13:16 Colace - PO 100 mg TID KODI Administration Fluticasone Propionate 2 spray 10/07/17 10:00 10/12/17 10:04 Flonase - NS 2 sprays DAILY KODI Administration Gabapentin 200 mg 10/07/17 14:00 10/12/17 13:14 Neurontin - PO 200 mg TID KODI Administration Non-Formulary Medication 1 each 10/07/17 10:00 10/12/17 10:05 Patient's Own Med PO Not Given DAILY KODI Ondansetron HCl 8 mg 10/06/17 11:56 Zofran Injection IVPUSH Q8H PRN NAUSEA Polyethylene Glycol 17 gm 10/10/17 10:00 10/12/17 10:05 Miralax (For Daily Use) - PO Not Given BID KODI Ranitidine HCl 150 mg 10/06/17 22:00 10/12/17 10:06 Zantac - PO 150 mg BID KODI Administration Senna 2 tab 10/06/17 19:20 Senna - PO HS PRN CONSTIPATION Tramadol HCl 50 mg 10/11/17 11:22 10/12/17 04:34 Ultram - PO 50 mg Q6H PRN Administration PAIN LEVEL 2-5 Zolpidem Tartrate 10 mg 10/11/17 22:10 Ambien - PO HS PRN INSOMNIA ASSESSMENT/PLAN: 37 year old female with a past medical history of anxiety, depression, disc herniation, chronic back pain is s/p L4-S1 laminectomy and decompression w/ fusion performed by Dr. Damaso Kathleen #Back Pain: POD9 L4-S1 laminectomy/decompression w/ fusion, more pain today -continue flexeril, ultram, toradol for pain -valium for spasms -Dr. Kathleen evaluation appreciated -patient making urine -no bowel movement yet but patient is producing gas -zofran for nausea -continue amitriptyline -soft diet tolerated #Insomnia: controlled -patient is on ambien 10, continue HS PRN #Anxiety: -continue diazepam Q8 as needed #GERD: -continue ranitidine 150 QD #Prophylaxis -SCDs, no heparin on this patient #FEN: -no standing fluids -replete lytes in Am -Soft diet #Disposition: -patient is discharged to SNF Visit type - Emergency Visit Emergency Visit: No - New Patient This patient is new to me today: No - Critical Care Critical Care patient: No
--- NOTE | 2017-10-12 18:30 | PN ---
Teaching Attending Note Name of Resident: Maico Lewis ATTENDING PHYSICIAN STATEMENT I saw and evaluated the patient. I reviewed the resident's note and discussed the case with the resident. I agree with the resident's findings and plan as documented. SUBJECTIVE: no fever or chills. LE limited mobility due to pain. whole body spasms OBJECTIVE: NAD , Awake and cooperative , CV: RRR, no MRG Lungs: CTAB Ext: no edema , no erythema MS : lower back dressing neuro of LE : LLE: hip flexion 3/5 ( limited by pain) , knee flexion and extension 4/5 ( pain ) , ankle plantar flexion and dorsiflexion 5/5 RLE : hip flexion 3/5 ( also, limited by pain) , knee flexion and extension 4/ 5 ( pain ) , ankle plantar flexion and dorsiflexion 5/5 sensation to light touch Nl. reflexes 2+ knee jerk and biceps b/l ASSESSMENT AND PLAN: 37 y/o lady with h/o chronic back pain, depression , GERD and other medical problems who presented for Laminetomy/decompression/fusion of L4-S1 1- s/p Laminetomy/decompression/fusion of L4-S1 : POD day 9 cont ot have painand spasms and limited mobility even in bed due to pain - cont tramadol - cont amitriptyline - cont diazepam, and try to decrease frequency tomorrow - cont flexeril and neurontin 2- GERD: cont ranitidine 3- h/o depression : not on any treatment at this point dispo : due to the poor functional status due to pain, the patient can not ambulate and barely can maneuver in bed. she will need rehab placement
[2017-10-12] MEDS ORDERED: PT OWN MED DRAWER 7, Y5N ONE (22:22)
[2017-10-12] MEDS: AMITRIPTYLINE HCL 75 MG TABLET PO SCH (23:18)
[2017-10-13] MEDS: POLYETHYLENE GLYCOL 3350 119 GM BTL PO SCH ×2 (00:24→10:43)
[2017-10-13] MEDS: CYCLOBENZAPRINE HCL 10 MG TABLET (FP) PO SCH ×3 (04:03→14:03)
[2017-10-13] MEDS: DOCUSATE SODIUM 100 MG CAPSULE (FP) PO SCH ×2 (05:29→14:03)
[2017-10-13] MEDS: GABAPENTIN 100 MG CAPSULE (FP) PO SCH ×2 (05:30→14:03)
[2017-10-13] MEDS: traMADol HCL 50 MG TABLET PO PRN ×2 (05:30→10:49)
--- NOTE | 2017-10-13 08:01 | PN ---
Physical Exam: SUBJECTIVE: Patient seen and examined at bedside. No acute changes from yesterday OBJECTIVE: Vital Signs Period Temp Pulse Resp BP Sys/García Pulse Ox Last 24 Hr 98.6 F-98.8 F 78-112 18-20 100-130/60-93 96-98 GENERAL: A&Ox3, no acute distress EYES: PERRLA, EOMI LUNGS: CTA, no wheezing HEART: RRR no murmurs rubs or gallops ABDOMEN: obese, soft, nontender EXTREMITIES: 2+ pulses, warm, well-perfused, no edema. NEUROLOGICAL: CN II-XII intact, reflexes 2/6 bilaterally, motor strength 5/5 b/ l but restricted due to pain, sensation intact PSYCH: Normal mood, normal affect. SKIN: Warm, dry, normal turgor, no rashes or lesions noted, Dressing clean and dry Active Medications Generic Name Dose Route Start Last Admin Trade Name Freq PRN Reason Stop Dose Admin Acetaminophen 650 mg 10/06/17 22:00 10/12/17 23:19 Tylenol - PO 650 mg QID KODI Administration Amitriptyline HCl 150 mg 10/06/17 22:00 10/12/17 23:18 Elavil - PO 150 mg HS KODI Administration Cyclobenzaprine HCl 5 mg 10/06/17 20:30 10/13/17 04:03 Flexeril - PO Not Given Q6H KODI Diazepam 5 mg 10/10/17 18:14 10/12/17 23:18 Valium - PO 5 mg Q8H PRN Administration MUSCLE SPASMS Diphenhydramine HCl 50 mg 10/06/17 19:20 Benadryl Injection - IVPUSH Q6H PRN FOR ITCHING Docusate Sodium 100 mg 10/08/17 22:00 10/13/17 05:29 Colace - PO 100 mg TID KODI Administration Fluticasone Propionate 2 spray 10/07/17 10:00 10/12/17 10:04 Flonase - NS 2 sprays DAILY KODI Administration Gabapentin 200 mg 10/07/17 14:00 10/13/17 05:30 Neurontin - PO 200 mg TID KODI Administration Heparin Sodium (Porcine) 5,000 unit 10/13/17 07:30 Heparin - SQ TID KODI Non-Formulary Medication 1 each 10/07/17 10:00 10/12/17 10:05 Patient's Own Med PO Not Given DAILY KODI Ondansetron HCl 8 mg 10/06/17 11:56 Zofran Injection IVPUSH Q8H PRN NAUSEA Polyethylene Glycol 17 gm 10/10/17 10:00 10/13/17 00:24 Miralax (For Daily Use) - PO Not Given BID KODI Ranitidine HCl 150 mg 10/06/17 22:00 10/12/17 23:18 Zantac - PO 150 mg BID KODI Administration Senna 2 tab 10/06/17 19:20 Senna - PO HS PRN CONSTIPATION Tramadol HCl 50 mg 10/11/17 11:22 10/13/17 05:30 Ultram - PO 50 mg Q6H PRN Administration PAIN LEVEL 2-5 Zolpidem Tartrate 10 mg 10/11/17 22:10 Ambien - PO HS PRN INSOMNIA ASSESSMENT/PLAN: 37 year old female with a past medical history of anxiety, depression, disc herniation, chronic back pain is s/p L4-S1 laminectomy and decompression w/ fusion performed by Dr. Damaso Kathleen #Back Pain: POD10 L4-S1 laminectomy/decompression w/ fusion, more pain today -continue flexeril, ultram, tramadol -valium PRN for spasms -Dr. Kathleen evaluation appreciated -patient making urine -zofran for nausea -continue amitriptyline -soft diet tolerated #Insomnia: controlled -patient is on ambien 10, continue HS PRN #Anxiety: -continue diazepam Q8 as needed #GERD: -continue ranitidine 150 QD #Prophylaxis -SCDs, no heparin on this patient #FEN: -no standing fluids -replete lytes in Am -Soft diet #Disposition: -patient is discharged to SNF Visit type - Emergency Visit Emergency Visit: No - New Patient This patient is new to me today: No - Critical Care Critical Care patient: No
[2017-10-13] MEDS: diazePAM 5 MG TABLET PO PRN (08:41)
[2017-10-13] MEDS: HEPARIN NA (PORCINE) 5,000 UNITS/ML 1ML VIAL SQ SCH ×2 (10:38→14:03)
[2017-10-13] MEDS: ACETAMINOPHEN 325 MG TABLET (FP) PO SCH ×2 (10:42→14:03)
[2017-10-13] MEDS: RANITIDINE HCL 150 MG TABLET (FP) PO SCH (10:42)
[2017-10-13] MEDS: FLUTICASONE PROP 0.05% 16 GM NASAL SPRAY NS SCH (10:42)
[2017-10-13 12:55] VITALS: BP 112/61; PULSE 93; TEMP 98
--- NOTE | 2017-10-13 15:18 | PN ---
Teaching Attending Note Name of Resident: Maico Lewis ATTENDING PHYSICIAN STATEMENT I saw and evaluated the patient. I reviewed the resident's note and discussed the case with the resident. I agree with the resident's findings and plan as documented. SUBJECTIVE: no fever or chills . cont ot have back pain and spasms OBJECTIVE: NAD , Awake and cooperative , CV: RRR, no MRG Lungs: CTAB Ext: no edema , no erythema MS : lower back dressing with clean wound , no mak, slight oozing ( serosanguinus ) form 2 small open areas . neuro of LE : LLE: hip flexion 2/5 ( limited by pain) , knee flexion and extension 3-4/5 ( pain ) , ankle plantar flexion and dorsiflexion 5/5 RLE : hip flexion 2/5 ( also, limited by pain) , knee flexion and extension 3-4 /5 ( pain ) , ankle plantar flexion and dorsiflexion 5/5 sensation to light touch Nl. reflexes 2+ knee jerk and biceps b/l ASSESSMENT AND PLAN: 37 y/o lady with h/o chronic back pain, depression , GERD and other medical problems who presented for Laminetomy/decompression/fusion of L4-S1 1- s/p Laminetomy/decompression/fusion of L4-S1 : POD day 10 cont to have pain and spasms and limited mobility even in bed due to pain - cont tramadol , amitriptyline , flexeril and neurontin decrease valium to BID as needed 2- GERD: cont ranitidine 3- h/o depression : not on any treatment at this point dispo:dc to rehab today .
[2017-10-13] MEDS ORDERED: diazePAM 5 MG TABLET PO PRN (18:14)
== END 2017-10-13 14:56 | DRG 304 ==
LOC: JSAMEDAYSX 10-03 11:00 → JICU 10-03 22:51 → J8W 10-06 20:22
PROVIDERS: ADMIT Orthopaedic Surgery Orthopaedic Surgery of the Spine; ATTEND Internal Medicine
PROC: 01NB0ZZ Release Lumbar Nerve, Open Approach (ICD-10-PCS; 2017-10-03)
PROC: 0SG30AJ Fusion of Lumbosacral Joint with Interbody Fusion Device, Posterior Approach, Anterior Column, Open Approach (ICD-10-PCS; principal; 2017-10-03 12:30)
DX: M51.27 Other intervertebral disc displacement, lumbosacral region (principal); K21.9 Gastro-esophageal reflux disease without esophagitis; M54.17 Radiculopathy, lumbosacral region; G47.00 Insomnia, unspecified; F41.8 Other specified anxiety disorders; K59.00 Constipation, unspecified
CPT/HCPCS: 36415; 76000-TC-FY; 80048; 80053; 83735; 84100; 84703; 85025; 86850; 86900; 86901; 88304-TC; 94760; 97116-GP; 97162-GP; J1170; J1644